=== PATIENT | female | born 1940 | race Caucasian/White ===

== ENCOUNTER 2017-03-04 08:09 | Inpatient (IN) | payer MEDICARE ==
[2017-03-04] VITALS (10 sets, daily range): BP systolic 113–139; BP diastolic 53–70; BMI 23.1
[~2017-03-04 08:09] MED LIST: ADVAIR 100/501 DISK INH; CALCIUM CITRATE1 TAB PO; DUONEB 2.5-0.5 M3 ML INH; ESTRACE1 MG PO; EZFE 200200 MG PO; FERROUS SULFAT325 MG PO; LIPITOR20 MG PO; LORTAB 5/500 TA1 TA2 PO; MULTI-DAY VITAM1 TAB PO; NORCO 10/325 TA1 TA1 PO; PRILOSEC20 MG PO; RESTORIL15 MG PO; SLOW-MAG 64 MG64 MG PO; SYNTHROID50 MCG PO; VITAMIN D50000 UNIT PO
[2017-03-04 08:29] LABS: BASOPHILS 0.2 % (0-2); EOSINOPHILS 1.6 % (0-7); HEMATOCRIT 30.3 % (36.0-48.0); HEMOGLOBIN 10.1 g/dL (12-16); IMMATURE GRANULOCYTES 0.6 % (0-5); LYMPHOCYTES 30.1 % (15-50); MCH 31.3 pg (26.0-34.0); MCHC 33.3 g/dL (31.0-37.0); MCV 93.8 fL (80.0-100.0); MEAN PLATELET VOLUME 9.6 fL (7.4-10.4); MONOCYTES 7.4 % (2-11); NEUTROPHILS 60.1 % (40-80); RBC 3.23 10x6/uL (4.00-5.40); RDW 12.6 % (11.5-14.5); WBC 12.4 10x3/uL (4.8-10.8)
[2017-03-04 08:30] LABS: PLATELET COUNT 287 10x3/uL (130-400)
[2017-03-04 08:50] LABS: ALBUMIN 2.8 g/dL (3.4-5.0); ANION GAP 15.9 mmol/L (8-16); BILIRUBIN - TOTAL 0.32 mg/dL (0.2-1.3); CALCIUM 8.8 mg/dL (8.5-10.1); CARBON DIOXIDE 19.9 mmol/L (21.0-32.0); CREATININE - SERUM 1.8 mg/dL (0.6-1.3); POTASSIUM - SERUM 3.8 mmol/L (3.5-5.1); PROTEIN - SERUM 6.4 g/dL (6.4-8.2)
[2017-03-04 09:06] LABS: INR 0.94 (0.85-1.17); PROTIME 12.5 SECONDS (11.6-15.0)
[2017-03-04 09:54] LABS: APPEARANCE CLOUDY (CLEAR); BACTERIA MANY /hpf (NONE SEEN); BILIRUBIN NEGATIVE (NEGATIVE); COLOR YELLOW (YELLOW); EPITHELIAL CELLS 0-5 /hpf (0-5); GLUCOSE NEGATIVE (NEGATIVE); KETONE NEGATIVE (NEGATIVE); MUCUS <1+ /lpf (NONE SEEN); NITRITE POSITIVE (NEGATIVE); PROTEIN 1+ mg/dL (NEGATIVE); UROBILINOGEN NORMAL (NORMAL); WHITE CELLS - URINE >50 /hpf (0-5)
[2017-03-04] MEDS ORDERED: BONIVA3 MG/3 ML/ IV (11:27)
--- NOTE | 2017-03-04 11:45 | NUR ---
PT AOX4 RESP EVEN AND NONLABORED PT DENIES NEEDS AT THIS TIME IV TO RIGHT HAND PATENT AND INTACT AT THIS TIME SRX2 BED AT LOWEST SETTING CALL LIGHT WITHIN REACH WILL CONTINUE TO MONITOR
--- NOTE | 2017-03-04 20:00 | NUR ---
PT RESTING IN BED AND HAS NO VISIBLE SIGNS OF DISTRESS. PATIENT STATES HER PAIN IS 2/10 AND SHE IS "OKAY AT THE MOMENT." BROUGHT PATIENT A DRINK PER HER REQUEST. PATIENT DENIES OTHER NEEDS AT THIS TIME. BED IN LOWEST POSITION AND CALL LIGHT WITHIN REACH. ENCOURAGED THE PATIENT TO CALL IF SHE HAS NEEDS.
[2017-03-05] VITALS (7 sets, daily range): BP systolic 111–122; BP diastolic 36–62; BMI 23.0
[2017-03-05 05:01] LABS: BASOPHILS 0.1 % (0-2); EOSINOPHILS 0 % (0-7); HEMATOCRIT 31.4 % (36.0-48.0); HEMOGLOBIN 9.8 g/dL (12-16); IMMATURE GRANULOCYTES 0.3 % (0-5); LYMPHOCYTES 11.3 % (15-50); MCH 30.9 pg (26.0-34.0); MCHC 31.2 g/dL (31.0-37.0); MCV 99.1 fL (80.0-100.0); MEAN PLATELET VOLUME 9.8 fL (7.4-10.4); MONOCYTES 10.5 % (2-11); NEUTROPHILS 77.8 % (40-80); PLATELET COUNT 254 10x3/uL (130-400); RBC 3.17 10x6/uL (4.00-5.40); RDW 13.2 % (11.5-14.5); WBC 16.7 10x3/uL (4.8-10.8)
[2017-03-05 05:09] LABS: ALBUMIN 2.7 g/dL (3.4-5.0); ANION GAP 16.6 mmol/L (8-16); BILIRUBIN - TOTAL 0.28 mg/dL (0.2-1.3); CALCIUM 8.1 mg/dL (8.5-10.1); CARBON DIOXIDE 18.5 mmol/L (21.0-32.0); CREATININE - SERUM 1.6 mg/dL (0.6-1.3); POTASSIUM - SERUM 4.1 mmol/L (3.5-5.1); PROTEIN - SERUM 6.5 g/dL (6.4-8.2)
--- NOTE | 2017-03-05 10:33 | NUR ---
PT AWAKE AND ALERT. RATED PAIN 10/10. NORCO 10 GIVEN. AM MEDS GIVEN WITH NO COMPLICATIONS. NO OTHER NEEDS AT THIS TIME. WILL CONTINUE TO MONITOR.
--- NOTE | 2017-03-05 13:40 | NUR ---
Patient Name: DOMENICO MEJIA Admission Status: ER Accout number: [id number] Admission Date: 03-04-2017 : 1940 Admission Diagnosis: Attending: MIRANDA CARR Current LOS: 1 Anticipated DC Date: 03-07-2017 Planned Disposition: Assisted Facility Primary Insurance: [facility] Discharge Planning Comments: CM MET WITH PATIENT REGARDING D/C NEEDS AND PLANS. PATIENT STATED SHE LIVES WITH HER SON (SHEILA) AND HE WILL DRIVE HER IF GOES HOME. PATIENT IS INDEPENDENT WITH HER CARE AND HAS A NEBULIZER AND OXYGEN AT HOME. PATIENT STATES THERE ARE 3 STEPS TO ENTER HOME AND NO STAIRS INSIDE. PATIENTS PCP IS DR. CONNER AND PHARMACY IS [facility]. PATIENT SIGNED THE MADELINE WITH [facility] OR [facility]. PATIENT KNOWS A SNF IS WHERE SHE NEEDS TO GO AND IS WILLING TO GO TO [place]. CM WILL CONTINUE TO FOLLOW PATIENT WITH D/C NEEDS AND PLANS. PCP DR. UBALDO GROSS ON [address] [phone] SHEILA (SON) [phone] Driver Lifter Of Sanitation Truck: Layla Levin Is the patient Alert and Oriented? Yes 0 * How many steps to enter\exit or inside your home? 3 0 * PCP DR. CONNER 0 * Pharmacy [facility] [address] 0 * Preadmission Environment Home with Family 0 * ADLs Independent 0 * Equipment Nebulizer Oxygen 0 * List name and contact numbers for known caregivers / representatives who currently or will assist patient after discharge: SHEILA SHARMA (SON) [phone] * Community resources currently utilized None 0 * Additional services required to return to the preadmission environment? Yes 0 * Can the patient safely return to the preadmission environment? Yes 0 * Has this patient been hospitalized within the prior 30 days at any hospital? No 0 Grand Total: 0
--- NOTE | 2017-03-05 13:46 | NUR ---
CM REASSESSMENT NOTE: REFERRAL SENT TO [facility] FOR SNF PLACEMENT
--- NOTE | 2017-03-05 16:58 | NUR ---
OT NOTE: PT COMPLETED BUE STRENGTHENING EXS FOR INCREASED I WITH TRANSFERS. THANK YOU, DEYA BOURGEOIS/Ashlee
--- NOTE | 2017-03-05 20:00 | NUR ---
PATIENT RESTING IN BED AND DENIES NEEDS AT THIS TIME. BED IN LOWEST POSITION, CALL LIGHT WITHIN REACH, AND BED ALARM ON. ENCOURAGED THE PATIENT TO CALL IF SHE HAS NEEDS.
[2017-03-06 04:00] VITALS: BP 122/44
[2017-03-06 06:11] LABS: ALBUMIN 2.2 g/dL (3.4-5.0); ANION GAP 15.6 mmol/L (8-16); BILIRUBIN - TOTAL 0.41 mg/dL (0.2-1.3); CALCIUM 7.6 mg/dL (8.5-10.1); CARBON DIOXIDE 18.9 mmol/L (21.0-32.0); CREATININE - SERUM 1.6 mg/dL (0.6-1.3); POTASSIUM - SERUM 4.5 mmol/L (3.5-5.1); PROTEIN - SERUM 5.9 g/dL (6.4-8.2)
[2017-03-06 06:43] LABS: BASOPHILS 0.1 % (0-2); EOSINOPHILS 0.2 % (0-7); HEMATOCRIT 25.3 % (36.0-48.0); HEMOGLOBIN 8.4 g/dL (12-16); IMMATURE GRANULOCYTES 0.5 % (0-5); LYMPHOCYTES 11.1 % (15-50); MCH 31.7 pg (26.0-34.0); MCHC 33.2 g/dL (31.0-37.0); MEAN PLATELET VOLUME 10.2 fL (7.4-10.4); MONOCYTES 12.2 % (2-11); NEUTROPHILS 75.9 % (40-80); PLATELET COUNT 234 10x3/uL (130-400); RBC 2.65 10x6/uL (4.00-5.40); WBC 15.4 10x3/uL (4.8-10.8)
[2017-03-06 06:47] LABS: MCV 95.5 fL (80.0-100.0)
--- NOTE | 2017-03-06 07:30 | NUR ---
ASSESSMENT PER FLOW SHEET.PT WITHOUT DISTRESS.DENIES NEEDS.CALL LIGHT IN REACH.WING MAT ON AND WORKING ,FALL PREVENTION IN PLACE
[2017-03-06 08:54] VITALS: BP 121/53
--- NOTE | 2017-03-06 10:37 | NUR ---
OT NOTE: PERFORMED BED MOB WITH MOD ASSIST; ABLE TO AMB WITHIN ROOM WITH rw AND MIN ASSIST; STATIC SITTING ON EDGE OF BED WITH SPV; UNABLE TO MARCY SOCKS AST THIS TIME. FEEDING AND GROOMING WITH SET UP
--- NOTE | 2017-03-06 12:03 | NUR ---
UNIT 1 OF 1 BR'S INITIATED.PT WITHOUT REACTIONS AT PRESENT.
--- NOTE | 2017-03-06 14:15 | NUR ---
UNIT 1 OF 1 PRBC'S COMPLETE.PT WITHOUT REACTIONS.CALL LIGHT IN REACH
--- NOTE | 2017-03-06 16:14 | NUR ---
Rehab Prescreening Consult recieved and the chart was reviewed. She is a [facility] Managed M[employer] and will require a preauthorization for rehab. The preauth was initiated today. Will wait for a determination from [facility]. Nazia Wade RN Clinical Liaison, Rehab
--- NOTE | 2017-03-06 17:39 | NUR ---
OT NOTE: PT COMPLETED SIMPLE HYGIENE TASK WITH SET UP. PT COMPLETED BUE AROM EXS FOR INCREASED AX TOLERANCE. THANK YOU, DEYA BOURGEOIS/Ashlee
--- NOTE | 2017-03-06 18:12 | NUR ---
REMAINS WITHOOUT NEEDS,WITHOUT DISTRESS,CONT PLAN OF CARE
--- NOTE | 2017-03-06 18:56 | OP ---
PATIENT NAME: DOMENICO MEJIA I MEDICAL RECORD: [id number] :40 LOCATION:D.[id number] ADMISSION DATE:03/04/17 SURGEON: TIAN VELÁSQUEZ MD DATE OF OPERATION: 03/04/2017 Orthopedic Surgery Operative Note PREOPERATIVE DIAGNOSIS: Comminuted intertrochanteric fracture of the right hip. POSTOPERATIVE DIAGNOSIS: Comminuted intertrochanteric fracture of the right hip. PROCEDURE: Gamma nail intracephalomedullary fixation of intertrochanteric fracture of the right hip. SURGEON: Tian Velásquez MD. ANESTHESIA: General. INTRAOPERATIVE COMPLICATIONS: None. SUMMARY OF PATHOLOGIC FINDINGS: Consistent with the preoperative radiographs. The patient had a comminuted proximal intertrochanteric hip fracture. OPERATIVE SUMMARY IN DETAIL: After obtaining the appropriate preoperative orthopedic surgery consent as well as anesthetic consultation, evaluation and clearance, the patient was brought to the operating room and placed on the operating table in supine position. After general laryngeal mask was administered, the patient was placed on the Chick table. Right leg was placed in the traction boot. Left leg was placed in the well leg cortez. She was held firmly to the operating table using the belt strap system. Hip was reduced using traction under direct fluoroscopic evaluation, both AP and lateral planes. Hip was prepped and draped in routine sterile fashion. Incision was made over the tip of the greater trochanter. Intramedullary guidewire was sent down the femur using awl. Proximal reaming was followed by insertion of the gamma nail. The guide pin was placed in the center-center position of the femoral head. At this point, the compression screw was applied after reaming and compression was applied across the fracture. This resulted in excellent reduction of the fracture itself. The rotational screw was put into the appropriate depth and distal interlocking was done using the distal interlocking guide. Fluoroscopy was used to take radiographs final submitted for radiologist review. The wound was irrigated and closed in usual fashion. Sterile dressings were applied. The patient was awakened, taken to recovery in stable condition. All final needle and sponge counts were correct. TRANSINT:[id number] Voice Confirmation ID: [id number] DOCUMENT ID: [id number] OPERATIVE REPORT [id number] DOMENICO MEJIA I TIAN VELÁSQUEZ MD at 0912 CC: [id number] DICTATION DATE: 03/04/171900 FICTION WRITER: 03/04/172243 ADM IN [facility] [address] [id number]
[2017-03-06 20:00] VITALS: BP 124/43
--- NOTE | 2017-03-07 01:00 | NUR ---
PT CONFUSED STATES SHE IS AT [facility], ATEMPTED MULTIPLE TIMES TO REORIENT HER IN ORDER TO CALM HER DOWN. GARCÍA CATHETER WAS FOUND ON FLOOR BULB INTACT. PT CONTINUED TO TRY TO CLIMB OOB, SRX3 WING ALARM ON AND NON-SKID SOCKS IN USE. WARM BLANKET PROVIDED. WILL CONTINUE TO MONITOR.
--- NOTE | 2017-03-07 03:00 | NUR ---
PT ATEMPTING TO GET OUT BED STATING THAT SHE NEEDED TO GO HOME. CONFUSED TO PLACE AND SITUATION STATED "I'M AT THE DRS OFFICE AT [facility]" DOES NOT RECALL HAVING HIP SURGERY TWO DAYS AGO STATED "MY SURGERY WAS A MONTH AGO, I SHOULD NOT BE HERE." ASKED PT IF I COULD RESTART AN IV SHE STATED "NO, I DO NOT NEED IT." WOULD NOT ALLOW US TO REINSERT GARCÍA CATHETER STATING "I CAN PEE ON MY OWN." PT CALMED DOWN AFTER 10 MINS STATED THAT SHE WOULD NOT GET OUT OF BED AGAIN. CALL LIGHT IN REACH, INSTRUCTED PT TO USE CALL LIGHT FOR ANY NEEDS, PT VERBALIZED UNDERSTANDING. BED IN LOW POSITION, WING ALARM ON. WILL CONTINUE TO MONITOR.
[2017-03-07 04:00] VITALS: BP 129/66
[2017-03-07 05:57] LABS: BASOPHILS 0.1 % (0-2); EOSINOPHILS 0.2 % (0-7); HEMATOCRIT 30.1 % (36.0-48.0); IMMATURE GRANULOCYTES 0.5 % (0-5); LYMPHOCYTES 7.5 % (15-50); MCH 31.3 pg (26.0-34.0); MCHC 33.9 g/dL (31.0-37.0); MEAN PLATELET VOLUME 10.2 fL (7.4-10.4); MONOCYTES 10.5 % (2-11); NEUTROPHILS 81.2 % (40-80); PLATELET COUNT 238 10x3/uL (130-400); RDW 14.1 % (11.5-14.5); WBC 19.2 10x3/uL (4.8-10.8)
[2017-03-07 06:05] LABS: HEMOGLOBIN 10.2 g/dL (12-16); MCV 92.3 fL (80.0-100.0); RBC 3.26 10x6/uL (4.00-5.40)
[2017-03-07 06:15] LABS: ALBUMIN 2.4 g/dL (3.4-5.0); ANION GAP 18.8 mmol/L (8-16); BILIRUBIN - TOTAL 0.66 mg/dL (0.2-1.3); CALCIUM 7.9 mg/dL (8.5-10.1); CARBON DIOXIDE 18.1 mmol/L (21.0-32.0); CREATININE - SERUM 1.4 mg/dL (0.6-1.3); POTASSIUM - SERUM 3.9 mmol/L (3.5-5.1); PROTEIN - SERUM 5.8 g/dL (6.4-8.2)
--- NOTE | 2017-03-07 07:45 | NUR ---
ASSESSMENT COMPLETE. NO IV ACCESS. DRESSING TO R HIP C/D/I. FREQUENTLY TRYING TO CLIMB OUT OF BED. BED ALARM AND WING MAT IN USE. ORIENTED TO SELF ONLY.
[2017-03-07 08:32] VITALS: BP 139/67; BP 170/93
--- NOTE | 2017-03-07 08:51 | NUR ---
AM MEDICATIONS GIVEN WITHOUT DIFFICULTY.
[2017-03-07 12:03] VITALS: BP 126/60
--- NOTE | 2017-03-07 12:05 | NUR ---
SITTING ON SIDE OF BED ROCKING SIDE TO SIDE. REFUSING TO LAY DOWN IN BED. STATES SHE IS AT HOME AND NEEDS TO FEED HER CATS. JOSÉ MIGUEL MONCADA APN ON FLOOR NOTIFIED. ORDER RECIEVED FOR HALDOL IM. HALDOL GIVEN TO R COLLINS.
--- NOTE | 2017-03-07 14:29 | NUR ---
OT NOTE: PT VERY CONFUSED TODAY. HAS NO RECALL OF RECENT HIP SURGERY..DOES NOT BELIEVE SHE IS IN HOSPITAL. PT CONTINUALLY ATTEMPTING TO GET OUT OF BED; ATTEMPTED TO REDIRECT PT WITH UE EXS SHE WAS BECOMING SLIGHTLY AGITATED. PT ABLE TO FOLLOW EXS WITH DEMONSTRATIONAL CUES BUT NOT VERBAL CUES. ATTEMPTED TO GO OVER SAFETY AWARNESS ISSUES, BUT PT UNABLE TO REMEMBER EVEN AFTER 3 TIMES EXPLAINING.
--- NOTE | 2017-03-07 15:06 | NUR ---
NUTRITION F/U CHART REVIEWED. PT IN ISOLATION. TOLERATING REG DIET. 25 TO 50% INTAKE RECENT MEALS. WILL CONTINUE TO PROVIDE DIET. PT DECLINES ENSURE. RD FOLLOWING
[2017-03-07 16:00] VITALS: BP 130/68
--- NOTE | 2017-03-07 16:00 | NUR ---
RESTING QUIETLY WITH EYES CLOSED. BLADDER SCAN PERFORMED. RESULTED 230 CC'S. IV SITED TO L FA WITH 22 GAUGE X 1 ATTEMPT BY KEE HANSON RN.
--- NOTE | 2017-03-07 16:41 | NUR ---
NS BOLUS STARTED.
--- NOTE | 2017-03-07 18:31 | NUR ---
RESTING QUIETLY WITH EYES CLOSED. FAMILY X 2 AT BEDSIDE.
[2017-03-07 20:00] VITALS: BP 133/67
--- NOTE | 2017-03-07 20:45 | NUR ---
PT RESTING WITH EYES CLOSED, RESPIRATIONS EVEN AND UNLABORED. NO DISTRESS NOTED. IV LEFT FOREARM PATENT 1/2 NS @30. FALL PRECAUTIONS IN PLACE. PT REFUSES SCD'S AT THIS TIME. WILL CONTINUE TO MONITOR.
--- NOTE | 2017-03-07 22:00 | NUR ---
BED CHANGE COMPLETED AT THIS TIME DUE TO PT INCONTINENT OF URINE UNABLE TO MEASURE AMOUNT. SCD'S ON. FALL PRECAUTIONS IN PROGRESS. WILL CONTINUE TO MONITOR.
--- NOTE | 2017-03-07 23:22 | NUR ---
PRN ATIVAN 1MG IM ADMINISTERED IN LEFT DELTOID AT THIS TIME FOR AGITATION, PT ATEMPTING TO CRAWL OOB STATING "I'M GOING HOME". FALL PRECAUTIONS IN PROGRESS. WILL CONTINUE TO MONITOR.
[2017-03-08 01:23] VITALS: BP 131/71
--- NOTE | 2017-03-08 05:00 | NUR ---
PT ATEMPTING TO GET OOB WANTING TO GO HOME. BED AND WING ALARM ON, SRX3. WILL CONTINUE TO MONITOR.
[2017-03-08 05:44] LABS: BASOPHILS 0.1 % (0-2); EOSINOPHILS 0.9 % (0-7); HEMATOCRIT 25.9 % (36.0-48.0); HEMOGLOBIN 8.8 g/dL (12-16); IMMATURE GRANULOCYTES 0.4 % (0-5); LYMPHOCYTES 9.3 % (15-50); MCH 31.4 pg (26.0-34.0); MCV 92.5 fL (80.0-100.0); MEAN PLATELET VOLUME 9.9 fL (7.4-10.4); MONOCYTES 9.9 % (2-11); NEUTROPHILS 79.4 % (40-80); PLATELET COUNT 217 10x3/uL (130-400); RDW 13.6 % (11.5-14.5)
[2017-03-08 06:16] LABS: WBC 12.8 10x3/uL (4.8-10.8)
[2017-03-08 06:25] LABS: ALBUMIN 1.9 g/dL (3.4-5.0); ANION GAP 12.3 mmol/L (8-16); BILIRUBIN - TOTAL 0.5 mg/dL (0.2-1.3); CALCIUM 7.5 mg/dL (8.5-10.1); CARBON DIOXIDE 20.1 mmol/L (21.0-32.0); CREATININE - SERUM 1.4 mg/dL (0.6-1.3); POTASSIUM - SERUM 3.4 mmol/L (3.5-5.1); PROTEIN - SERUM 5.2 g/dL (6.4-8.2)
[2017-03-08 06:42] VITALS: BP 144/62
--- NOTE | 2017-03-08 07:45 | NUR ---
ASSESSMENT COMPLETE. IV TO L FA PATENT. NS INFUSING AT 30 CC/HR VIA PUMP. DRESSING INTACT TO R HIP. ORIENTED TO SELF ONLY. WING MAT AND BED ALARM IN USE. SCD'S IN USE.
[2017-03-08 08:31] VITALS: BP 137/68
[2017-03-08] MEDS ORDERED: ELIQUIS2.5 MG PO (11:07)
[2017-03-08] MEDS ORDERED: FLORAJEN3 CAPS460 MG PO (11:08)
[2017-03-08] MEDS ORDERED: SENOKOT-S TABLE1 TAB PO (11:08)
[2017-03-08] MEDS ORDERED: DOXYCYCLINE HY100 M2 PO (11:09)
--- NOTE | 2017-03-08 11:12 | NUR ---
CM REASSESSMENT NOTE: PATIENT IS DISCHARGING TO THE [facility] TODAY BY FACILITY VAN TO A SKILLED BED.
[2017-03-08] MEDS ORDERED: HYDROCODONE-APA1 TAB PO (13:31)
--- NOTE | 2017-03-08 13:55 | NUR ---
IV REMOVED. CATHETER TIP INTACT. DRESSING TO R HIP CHANGED. KATHERINE INTACT TO INCISIONS X 3 TO R HIP.
--- NOTE | 2017-03-08 14:12 | NUR ---
REPORT CALLED TO TRISH AT THE [facility]. WILL DC WHEN RIDE FROM FACILITY AVAILABLE.
--- NOTE | 2017-03-08 14:14 | NUR ---
CM REASSESSMENT NOTE: PATIENTS FAMILY (SHEILA-SON) HAS BEEN NOTIFIED OF PATIENT DISCHARGING TO THE [facility] TODAY.
--- NOTE | 2017-03-08 15:39 | NUR ---
DC'D TO THE Exent WITH TRACK COACH VIA WC WITH BELONGINGS.
--- NOTE | 2017-03-25 15:54 | DS ---
PATIENT:DOMENICO MEJIA I :40 MEDICAL RECORD: [id number] DISCHARGE SUMMARY ADMISSION DATE: 03/04/17 DISCHARGE DATE: 03/08/17 DATE OF ADMISION: 03/04/2017 DATE OF DISCHARGE: 03/08/2017 DIAGNOSES: 1. Status post fall. 2. Comminuted intertrochanteric fracture of the right hip. 3. Urinary tract infection. 4. Chronic obstructive pulmonary disease, oxygen dependent. CONSULT: Dr. Varma for hip fracture. IMAGES OR PROCEDURES: 1. Gamma nail fixation of the right hip. 2. Two-view hip film, which showed a right hip fracture. 3. Chest x-ray, which showed no acute pathology. HOSPITAL COURSE: The full H&P is listed elsewhere in the chart for this 77-year-old female patient, who is oxygen dependent at home, who tripped over her oxygen tank and was brought in for evaluation. She had a noted right hip fracture. She was placed on the med/surg floor and ortho consult was obtained. The patient underwent operative procedure to repair her right hip. She was placed on the ortho clinical pathway where her pain was controlled and she had DVT prophylaxis with Eliquis. She had a noted urinary tract infection and the culture was positive for Staph aureus, so she was treated with IV Rocephin. Her clinical condition improved. Her antibiotic therapy was deescalated. She did well on the ortho pathway. She was thought to be stable to transfer to the [facility] to continue her hip rehabilitation. See med rec. TRANSINT:[id number] Voice Confirmation ID: [id number] DOCUMENT ID: [id number] Dictated By: MELE SAENZ I have interviewed/examined the above patient and agree with these documented findings. MIRANDA CARR MD at 1110 at 1553 CC: [id number] DICTATION DATE: 03/20/17 1625 SCARFER OPERATOR: 03/21/17 1052 DIS IN 03/08/17 [address] [place] [address]
[2017-07-02] MEDS ORDERED: FISH OIL 1,2001 CAP PO (15:19)
[2017-07-02] MEDS ORDERED: CALTRATE 600 M600 M1 PO (15:19)
[2017-07-02] MEDS ORDERED: MAG-OXIDE400 MG PO (15:19)
[2017-07-02] MEDS ORDERED: VITAMIN B-121000 MCG PO (15:19)
[2017-07-02] MEDS ORDERED: VITAMIN K2 PO (15:20)
[2017-07-02] MEDS ORDERED: VITAMIN D31000 UNIT PO (15:20)
== END 2017-03-08 15:41 | DRG 481 ==
LOC: D.ER 08:09 → D.MS 10:41
PROVIDERS: Emergency Medicine; Orthopaedic Surgery; ADMIT Family Medicine
PROC: 0QH636Z Insertion of Intramedullary Internal Fixation Device into Right Upper Femur, Percutaneous Approach (ICD-10-PCS; principal; 2017-03-04 13:45)
DX: S72.141A Displaced intertrochanteric fracture of right femur, initial encounter for closed fracture (principal); N39.0 Urinary tract infection, site not specified; D62 Acute posthemorrhagic anemia; N17.9 Acute kidney failure, unspecified; W01.0XXA Fall on same level from slipping, tripping and stumbling without subsequent striking against object, initial encounter; J44.9 Chronic obstructive pulmonary disease, unspecified; M19.90 Unspecified osteoarthritis, unspecified site; R41.0 Disorientation, unspecified; M81.0 Age-related osteoporosis without current pathological fracture; Z99.81 Dependence on supplemental oxygen; E86.0 Dehydration; E03.9 Hypothyroidism, unspecified; K21.9 Gastro-esophageal reflux disease without esophagitis; B95.61 Methicillin susceptible Staphylococcus aureus infection as the cause of diseases classified elsewhere; Z87.891 Personal history of nicotine dependence

== ENCOUNTER → 2017-06-19 07:33 | Outpatient (CLI) | payer MEDICARE ==
[2017-03-05 14:43] VITALS: BMI 23.0
[~2017-06-19 07:33] MED LIST changes: +BONIVA3 MG/3 ML/ IV; +CALTRATE 600 M600 M1 PO; +DOXYCYCLINE HY100 M2 PO; +ELIQUIS2.5 MG PO; +FISH OIL 1,2001 CAP PO; +FLORAJEN3 CAPS460 MG PO; +HYDROCODONE-APA1 TAB PO; +MAG-OXIDE400 MG PO; +SENOKOT-S TABLE1 TAB PO; +VITAMIN B-121000 MCG PO; +VITAMIN D31000 UNIT PO; +VITAMIN K2 PO
== END | disposition home or self-care (01) ==
LOC: D.NM 07:33
DX: M79.604 Pain in right leg (principal)

== ENCOUNTER → 2017-06-26 15:35 | Outpatient (CLI) | payer MEDICARE ==
[2017-03-05 14:43] VITALS: BMI 23.0
== END ==
LOC: D.ER 15:35 → D.LABREF 18:01 → D.ER 18:01
DX: M25.561 Pain in right knee (principal); Z11.8 Encounter for screening for other infectious and parasitic diseases

== ENCOUNTER 2017-06-26 18:33 | Emergency (ER) | payer MEDICARE ==
[2017-03-05 14:43] VITALS: BMI 23.0
[~2017-06-26 18:33] MED LIST changes: -CALTRATE 600 M600 M1 PO; -FISH OIL 1,2001 CAP PO; -MAG-OXIDE400 MG PO; -VITAMIN B-121000 MCG PO; -VITAMIN D31000 UNIT PO; -VITAMIN K2 PO
[2017-07-02] MEDS ORDERED: VITAMIN B-121000 MCG PO (15:19)
[2017-07-02] MEDS ORDERED: CALTRATE 600 M600 M1 PO (15:19)
[2017-07-02] MEDS ORDERED: MAG-OXIDE400 MG PO (15:19)
[2017-07-02] MEDS ORDERED: FISH OIL 1,2001 CAP PO (15:19)
[2017-07-02] MEDS ORDERED: VITAMIN K2 PO (15:20)
[2017-07-02] MEDS ORDERED: VITAMIN D31000 UNIT PO (15:20)
== END 2017-06-26 18:40 | disposition home or self-care (01) ==
LOC: D.ER 18:33
DX: Z02.9 Encounter for administrative examinations, unspecified (principal)

== ENCOUNTER 2017-07-03 10:00 | Inpatient (IN) | payer MEDICARE ==
[~2017-07-03] VITALS: Ht 157.5 cm; Wt 55.9 kg
--- NOTE | ~2017-07-03 | OP ---
PATIENT NAME: DOMENICO MEJIA I MEDICAL RECORD: [id number] :40 LOCATION:D.MS [facility]18 ADMISSION DATE:07/08/17 SURGEON: TIAN VELÁSQUEZ MD DATE OF OPERATION: 07/08/2017 PREOPERATIVE DIAGNOSIS: Painful right total knee. POSTOPERATIVE DIAGNOSIS: Painful right total knee. PROCEDURE: Revision of total knee arthroplasty. SURGEON: Tian Velásquez MD ANESTHESIA: General. INTRAOPERATIVE COMPLICATIONS: None. SUMMARY OF PATHOLOGIC FINDINGS: The patient had loosened at the tibial baseplate around the Palacos cement. Other than that, she had excellent distal femoral fixation. IMPLANT REMOVED: Biomet total knee arthroplasty. IMPLANT PLACED: Triathlon total stabilizing revision arthroplasty. IMPLANTS USED: Size 4 distal femoral component. Size 4 distal augmentation medially and laterally. Size 12 x 100 cemented implant. A tibial baseplate size 4 with a 4 offset adapter. Please note that there was a femoral posterior augment 5 mm as well laterally and the stem on the tibia was 12 mm x 50 mm. This was a cemented implant as this elder patient with osteoporosis I did not feel would be pain free with press-fit stemmed implants. OPERATIVE SUMMARY IN DETAIL: After obtaining the appropriate preoperative orthopedic surgery consent as well as anesthetic consultation, evaluation, and clearance, the patient was brought to the operating room and placed on the operating table in supine position. After general laryngeal mask was administered, tourniquet was placed about the proximal aspect of the right lower extremity. Right lower extremity was then prepped and draped in routine sterile fashion. Leg was elevated, exsanguinated and tourniquet was inflated to 350 mmHg. Routine midline incision was made in keeping with the previous incision taking down for a paramedian arthrotomy. Paramedian arthrotomy was performed. Patella was everted. Distal femur was exposed. The distal femur was quite difficult to remove; however, combination of the Bautista revision set and the small flexible osteotomes as well as use of the Gigli saw made removal of the distal femur reasonable without excessive bone loss. Having completed this, attention was turned to the tibia. The tibia was removed quite easily and it was loose between the Palacos cement and the baseplate. Palacos cement was removed. Serial and sequential reaming was done of the tibia for a cemented implant. Cleanup cut was made and then reaming was done again to the distal femur. Cleanup cut was made. Box cut was made for the total stabilizing revision. Trials were put into place corresponding to the above implants, taken through range of motion and found to be stable in all planes. Having completed this, copious pulsatile lavage irrigation was run through the knee cavity while the final components were being assembled on the back table. Cement restrictors were placed in both the femur and the tibia. Bone ends were dried and then the OPERATIVE REPORT [id number] DOMENICO MEJIA I canals were filled with cement and the bone ends were covered with the cement. Both the tibia and femoral components were cemented into place. All excess cement was removed. After the cement was allowed to harden, knee was taken through range of motion and found to be stable in all planes. Paramedian arthrotomy was closed with #2 Ethibond, followed by #1 Vicryl, 2-0 Vicryl, and skin jaime. Sterile dressings were applied. The patient was awakened, taken to recovery in stable condition. All final needle and sponge counts were correct. TRANSINT:[id number] Voice Confirmation ID: [id number] DOCUMENT ID: [id number] CHRISTEN GUZMAN, TIAN AHUMADA at 1133 CC: [id number] DICTATION DATE: 07/11/172049 PRECISION ASSEMBLER: 07/12/17 0723 DIS IN 07/11/[address] [place] [address]
[~2017-07-03 10:00] MED LIST changes: +CALTRATE 600 M600 M1 PO; +FISH OIL 1,2001 CAP PO; +MAG-OXIDE400 MG PO; +VITAMIN B-121000 MCG PO; +VITAMIN D31000 UNIT PO; +VITAMIN K2 PO
[2017-07-03 10:38] LABS: BASOPHILS 0.3 % (0-2); EOSINOPHILS 2.7 % (0-7); HEMATOCRIT 31.2 % (36.0-48.0); HEMOGLOBIN 9.8 g/dL (12-16); IMMATURE GRANULOCYTES 0.2 % (0-5); LYMPHOCYTES 27.2 % (15-50); MCH 30.5 pg (26.0-34.0); MCHC 31.4 g/dL (31.0-37.0); MCV 97.2 fL (80.0-100.0); MEAN PLATELET VOLUME 10.1 fL (7.4-10.4); MONOCYTES 9.8 % (2-11); NEUTROPHILS 59.8 % (40-80); PLATELET COUNT 254 10x3/uL (130-400); RBC 3.21 10x6/uL (4.00-5.40); RDW 14.9 % (11.5-14.5); WBC 8.8 10x3/uL (4.8-10.8)
[2017-07-03 10:54] LABS: ANION GAP 12.4 mmol/L (8-16); CARBON DIOXIDE 27.7 mmol/L (21.0-32.0); CREATININE - SERUM 1.8 mg/dL (0.6-1.3); POTASSIUM - SERUM 5.1 mmol/L (3.5-5.1)
[2017-07-03 11:02] LABS: APTT 27.6 SECONDS (22.8-39.4); INR 0.98 (0.85-1.17); PROTIME 12.6 SECONDS (11.6-15.0)
[2017-07-03 11:03] LABS: COLOR YELLOW (YELLOW)
[2017-07-03 11:04] LABS: APPEARANCE CLOUDY (CLEAR); BILIRUBIN NEGATIVE (NEGATIVE); GLUCOSE NEGATIVE (NEGATIVE); KETONE NEGATIVE (NEGATIVE); NITRITE NEGATIVE (NEGATIVE); PROTEIN TRACE mg/dL (NEGATIVE); SPECIFIC GRAVITY 1.005 (1.005-1.020); UROBILINOGEN NORMAL (NORMAL)
[2017-07-03 11:06] LABS: WHITE CELLS - URINE >50 /hpf (0-5)
[2017-07-03 11:07] LABS: BACTERIA MANY /hpf (NONE SEEN); EPITHELIAL CELLS 0-5 /hpf (0-5)
[2017-07-08 07:50] VITALS: BP 128/55; BMI 23.4
[2017-07-08 17:53] VITALS: BP 144/66
[2017-07-09] VITALS: BP 114/49
[2017-07-09 04:00] VITALS: BP 104/43
[2017-07-09 05:54] LABS: HEMATOCRIT 30.3 % (36.0-48.0); HEMOGLOBIN 9.4 g/dL (12-16); MCH 30.5 pg (26.0-34.0); MCV 98.4 fL (80.0-100.0); MEAN PLATELET VOLUME 10.6 fL (7.4-10.4); RBC 3.08 10x6/uL (4.00-5.40); RDW 14.4 % (11.5-14.5); WBC 12.7 10x3/uL (4.8-10.8)
[2017-07-09 09:02] VITALS: BP 108/50
[2017-07-09 11:24] VITALS: Ht 157.5 cm; Wt 55.9 kg
[2017-07-09 12:45] VITALS: BP 106/45
[2017-07-09 17:19] VITALS: BP 112/47
[2017-07-10] VITALS: BP 107/40
[2017-07-10 04:00] VITALS: BP 107/40
[2017-07-10 05:28] LABS: HEMATOCRIT 24.3 % (36.0-48.0); HEMOGLOBIN 7.6 g/dL (12-16); MCH 30.4 pg (26.0-34.0); MCHC 31.3 g/dL (31.0-37.0); MCV 97.2 fL (80.0-100.0); MEAN PLATELET VOLUME 10.4 fL (7.4-10.4); RBC 2.5 10x6/uL (4.00-5.40); RDW 14.7 % (11.5-14.5)
[2017-07-10 08:01] VITALS: BP 117/36
[2017-07-10 12:20] VITALS: BP 103/44
[2017-07-10 17:02] VITALS: BP 149/60
[2017-07-10 21:18] VITALS: BP 137/54
[2017-07-11 01:11] VITALS: BP 127/55
[2017-07-11 06:00] VITALS: BP 132/46
[2017-07-11 07:52] VITALS: BP 136/52
[2017-07-11 08:06] LABS: HEMATOCRIT 30.3 % (36.0-48.0); HEMOGLOBIN 9.8 g/dL (12-16)
[2017-07-11] MEDS ORDERED: ELIQUIS2.5 MG PO (08:29)
[2017-07-11] MEDS ORDERED: HYDROCODONE-APA1 TAB PO (08:30)
== END 2017-07-11 14:45 | disposition home or self-care (01) | DRG 467 ==
LOC: D.SDCHOLD 07-08 06:55 → D.MS 07-08 06:55 → D.SDCHOLD 07-08 09:10 → D.MS 07-08 17:52
PROVIDERS: Orthopaedic Surgery
PROC: 0SPC0JZ Removal of Synthetic Substitute from Right Knee Joint, Open Approach (ICD-10-PCS; principal; 2017-07-08 09:45)
PROC: 0SRC0JZ Replacement of Right Knee Joint with Synthetic Substitute, Open Approach (ICD-10-PCS; 2017-07-08 09:45)
DX: T84.84XA Pain due to internal orthopedic prosthetic devices, implants and grafts, initial encounter (principal); D62 Acute posthemorrhagic anemia; J43.9 Emphysema, unspecified

== ENCOUNTER → 2017-07-15 11:16 | Outpatient (CLI) | payer MEDICARE ==
[2017-07-09 11:24] VITALS: BMI 22.5
== END | disposition home or self-care (01) ==
LOC: D.US 11:16
DX: R60.0 Localized edema (principal); M79.604 Pain in right leg

== ENCOUNTER → 2018-03-06 08:25 | Outpatient (CLI) | payer MEDICARE ==
[2017-07-09 11:24] VITALS: BMI 22.5
[~2018-03-06 08:25] MED LIST changes: +FLOMAX0.4 MG PO; +KEFLEX500 MG PO
== END | disposition home or self-care (01) ==
LOC: D.CT 08:25
DX: M54.2 Cervicalgia (principal)

== ENCOUNTER 2018-03-25 16:40 | Inpatient (IN) | payer MEDICARE ==
[~2018-03-25] VITALS: Ht 157.5 cm; Wt 58.1 kg
--- NOTE | ~2018-03-25 | MORECARE ---
CASE MANAGEMENT DISCHARGE SUMMARY PATIENT: DOMENICO MEJIA I UNIT: [id number] ADM DATE: 03/25/18 AGE: 78 : 40 SEX: F ROOM/BED: D.2132 AUTHOR: JAHAIRA ESTRADA PHYSICIAN: REFERRING PHYSICIAN: JULIO TITUS MD DATE OF SERVICE: 04/07/18 Discharge Plan Patient Name: DOMENICO MEJIA [facility] [facility] 1940 Planned Disposition: Inpatient Rehab Anticipated Discharge Date: 04/05/18 Discharge Date: 04/05/2018 Expected LOS: 11 Initial Reviewer: [email or web address] Initial Review Date: 03/25/2018 Generated: 04/07/18 9:10 am Comments DCP- Discharge Planning Updated by [email or web address]: Bonifacio Mike on 04/04/18 3:[address] Patient Name: DOMENICO MEJIA Encounter No: [id number] : 1940 Primary Insurance: [facility] MEDIC[facility] SOLUTIONS Anticipated DC Date: 04-07-2018 Planned Disposition: Inpatient Rehab External Planned Provider: [facility] DCP follow-up note: CM RECEIVED ORDER FOR INPATIENT REHAB PRESCREENING, MET WITH PT IN ROOM, DISCUSSED REHAB AVAILABILITY [facility] PROVIDERS, INPATIENT AND RETIREMENT FACILITY PROVIDERS AND LOCATIONS. PT WOULD LIKE TO BE CONSIDERED FOR REHAB AT [facility]. PT UNDERSTANDS THAT HER INSURANCE COMPANY WILL HAVE TO PROVIDE PRE AUTHORIZATION FOR INPATIENT REHAB SERVICES WHICH MAY TAKE SEVERAL DAYS. IMPORTANT MESSAGE FROM MEDICARE PROVIDED AND EXPLAINED. CM WAITING INPATIENT REHAB PRESCREENING WELL ADMISSION DETERMINATION FROM [facility]. BONIFACIO MIKE, CASE MANAGEMENT JUSTINA BARDALES DCP- Discharge Planning Updated by [email or web address]: Bonifacio Mike on 03/27/18 3:[address] Patient Name: DOMENICO MEJIA Admission Status: Urgent Accout number: [id number] Admission Date: 03-25-2018 : 1940 Admission Diagnosis:ACUTE KIDNEY FAILURE, UNSPECIFIED Attending: JULIO TITUS Current LOS: 2 Anticipated DC Date: 03-28-2018 Planned Disposition: Home Primary Insurance: [facility] MEDICARE SOLUTIONS Discharge Planning Comments: CM MET WITH PT IN ROOM TO DISCUSS DISCHARGE PLANNING AND NEEDS. PT REPORTS LIVING AT HOME INDEPENDENTLY, ALSON IN THE HOME IS PT'S ADULT SON. PT REPORTS HAVING ALL NEEDED MEDICAL EQUIPMENT FROM [facility] AND NO OUTSIDE SERVICES ASSISTING IN THE HOME. CM DISCUSSED AVAILABILITY OF HOME HEALTH, REHAB SERVICES AND MEDICAL EQUIPMENT. PT DENIES DISCHARGE NEEDS, REPORTS HER SON WILL PICK HER UP FOR DISCHARGE HOME. IMPORTANT MESSAGE FROM MEDICARE PROVIDED AND EXPLAINED. PT PLANS TO DISCHARGE HOME WITH SON, DENIES NEEDS AT THIS TIME. CM TO FOLLOW AND ASSIST IF NEEDED. Occupational Therapy Supervisor: Bonifacio Mike DCPIA - Discharge Planning Initial Assessment Updated by [email or web address]: Bonifacio Mike on 03/27/18 3:47 pm * Is the patient Alert and Oriented? Yes * How many steps to enter\exit or inside your home? * PCP DR. CONNER * Pharmacy [facility] [address] * Preadmission Environment Home with Family * ADLs Independent * Equipment Cane Nebulizer Oxygen Shower Chair Walker * Other Equipment HOME OXYGEN ONLY [facility] - PROVIDER * List name and contact numbers for known caregivers / representatives who currently or will assist patient after discharge: SHEILA SHARMA, SON, * Verbal permission to speak to the caregivers and representatives has been obtained from the patient. N/A * Community resources currently utilized None * Please name any agencies selected above. NONE * Additional services required to return to the preadmission environment? No * Can the patient safely return to the preadmission environment? Yes * Has this patient been hospitalized within the prior 30 days at any hospital? No Coverage Notice Reviewer: [email or web address] Simon Mike Notice Issued Date-Time: 03/27/2018 15:40 Notice Type: IM Discharge Notice Notice Delivered To: Patient Relationship to Patient: Electrician Assistant Name: Delivery Method: HAND - Hand Delivered Lisa Days: Prior Verbal Notification: Recipient Understood Notice: Yes Recipient Signature: Yes Med Rec Note Co-signed by Attending: Coverage Notice Comment: Reviewer: [email or web address] Simon Mike Notice Issued Date-Time: 04/04/2018 14:50 Notice Type: IM Discharge Notice Notice Delivered To: Patient Relationship to Patient: Electrician Assistant Name: Delivery Method: HAND - Hand Delivered Lisa Days: Prior Verbal Notification: Recipient Understood Notice: Yes Recipient Signature: Yes Med Rec Note Co-signed by Attending: Coverage Notice Comment: Last DP export: 11/2/18 3:53 p Patient Name: DOMENICO MEJIA Page [phone] at 0810 All edits/amendments must be made on the electronic document DICTATION DATE: 04/07/18809 GAMEMASTER: [email or web address] 04/07/18809 RPT#: [id number] DC DATE:04/05/18 STATUS: DIS IN [facility] [address] [place] [address] END OF REPORT
--- NOTE | ~2018-03-25 | MORECARE ---
CASE MANAGEMENT DISCHARGE SUMMARY PATIENT: DOMENICO MEJIA I UNIT: [id number] ADM DATE: 03/25/18 AGE: 78 : 40 SEX: F ROOM/BED: D.2132 AUTHOR: JAHAIRA ESTRADA PHYSICIAN: REFERRING PHYSICIAN: JULIO TITUS MD DATE OF SERVICE: 04/04/18 Discharge Plan Patient Name: DOMENICO MEJIA [facility] [facility] 1940 Planned Disposition: Inpatient Rehab Anticipated Discharge Date: 04/07/18 Discharge Date: Expected LOS: 13 Initial Reviewer: [email or web address] Initial Review Date: 03/25/2018 Generated: 04/04/18 4:53 pm Comments DCP- Discharge Planning Updated by [email or web address]: Bonifacio Mike on 04/04/18 2:[address] Patient Name: DOMENICO MEJIA Encounter No: [id number] : 1940 Primary Insurance: [facility] MEDICARE SOLUTIONS Anticipated DC Date: 04-07-2018 Planned Disposition: Inpatient Rehab External Planned Provider: [facility] DCP follow-up note: CM RECEIVED ORDER FOR INPATIENT REHAB PRESCREENING, MET WITH PT IN ROOM, DISCUSSED REHAB AVAILABILITY WELL HOME HEALTH PROVIDERS, INPATIENT AND ALF FACILITY PROVIDERS AND LOCATIONS. PT WOULD LIKE TO BE CONSIDERED FOR REHAB AT [facility]. PT UNDERSTANDS THAT HER INSURANCE COMPANY WILL HAVE TO PROVIDE PRE AUTHORIZATION FOR INPATIENT REHAB SERVICES WHICH MAY TAKE SEVERAL DAYS. IMPORTANT MESSAGE FROM MEDICARE PROVIDED AND EXPLAINED. CM WAITING INPATIENT REHAB PRESCREENING WELL ADMISSION DETERMINATION FROM [facility]. BONIFACIO MIKE, CASE MANAGEMENT JUSTINA BARDALES DCP- Discharge Planning Updated by [email or web address]: Bonifacio Mike on 03/27/18 2:[address] Patient Name: DOMENICO MEJIA Admission Status: Urgent Accout number: [id number] Admission Date: 03-25-2018 : 1940 Admission Diagnosis:ACUTE KIDNEY FAILURE, UNSPECIFIED Attending: JULIO TITUS Current LOS: 2 Anticipated DC Date: 03-28-2018 Planned Disposition: Home Primary Insurance: [facility] MEDICARE SOLUTIONS Discharge Planning Comments: CM MET WITH PT IN ROOM TO DISCUSS DISCHARGE PLANNING AND NEEDS. PT REPORTS LIVING AT HOME INDEPENDENTLY, ALSON IN THE HOME IS PT'S ADULT SON. PT REPORTS HAVING ALL NEEDED MEDICAL EQUIPMENT FROM [facility] EM[facility]GENC[facility] AND NO OUTSIDE SERVICES ASSISTING IN THE HOME. CM DISCUSSED AVAILABILITY OF HOME HEALTH, REHAB SERVICES AND MEDICAL EQUIPMENT. PT DENIES DISCHARGE NEEDS, REPORTS HER SON WILL PICK HER UP FOR DISCHARGE HOME. IMPORTANT MESSAGE FROM MEDICARE PROVIDED AND EXPLAINED. PT PLANS TO DISCHARGE HOME WITH SON, DENIES NEEDS AT THIS TIME. CM TO FOLLOW AND ASSIST IF NEEDED. Traffic Checker: Bonifacio Mike DCPIA - Discharge Planning Initial Assessment Updated by [email or web address]: Bonifacio Mike on 03/27/18 3:47 pm * Is the patient Alert and Oriented? Yes * How many steps to enter\exit or inside your home? * PCP DR. CONNER * Pharmacy [facility] [address] * Preadmission Environment Home with Family * ADLs Independent * Equipment Cane Nebulizer Oxygen Shower Chair Walker * Other Equipment HOME OXYGEN ONLY [facility] - PROVIDER * List name and contact numbers for known caregivers / representatives who currently or will assist patient after discharge: SHEILA SHARMA, SON, * Verbal permission to speak to the caregivers and representatives has been obtained from the patient. N/A * Community resources currently utilized None * Please name any agencies selected above. NONE * Additional services required to return to the preadmission environment? No * Can the patient safely return to the preadmission environment? Yes * Has this patient been hospitalized within the prior 30 days at any hospital? No Coverage Notice Reviewer: [email or web address] Simon Mike Notice Issued Date-Time: 03/27/2018 15:40 Notice Type: IM Discharge Notice Notice Delivered To: Patient Relationship to Patient: Clinical Data Specialist Name: Delivery Method: HAND - Hand Delivered Lisa Days: Prior Verbal Notification: Recipient Understood Notice: Yes Recipient Signature: Yes Med Rec Note Co-signed by Attending: Coverage Notice Comment: Reviewer: [email or web address] Simon Mike Notice Issued Date-Time: 04/04/2018 14:50 Notice Type: IM Discharge Notice Notice Delivered To: Patient Relationship to Patient: Clinical Data Specialist Name: Delivery Method: HAND - Hand Delivered Lisa Days: Prior Verbal Notification: Recipient Understood Notice: Yes Recipient Signature: Yes Med Rec Note Co-signed by Attending: Coverage Notice Comment: Last DP export: 03/27/18 2:55 Patient Name: DOMENICO MEJIA Page [id number] at 1553 All edits/amendments must be made on the electronic document DICTATION DATE: 04/04/181552 BATTERY INSPECTOR: AKIKO 04/04/181552 RPT#: [id number] DC DATE: STATUS: ADM IN [facility] [address] [place] [address] END OF REPORT
--- NOTE | ~2018-03-25 | MORECARE ---
CASE MANAGEMENT DISCHARGE SUMMARY PATIENT: DOMENICO MEJIA I UNIT: [id number] ADM DATE: 03/25/18 AGE: 78 : 40 SEX: F ROOM/BED: D.1343 AUTHOR: SEAN,DOC PHYSICIAN: REFERRING PHYSICIAN: JULIO TITUS MD DATE OF SERVICE: 03/27/18 Discharge Plan Patient Name: DOMENICO MEJIA Facility: [facility]:[place] : 1940 Planned Disposition: Home Anticipated Discharge Date: 03/28/18 Discharge Date: Expected LOS: 3 Initial Reviewer: [email or web address] Initial Review Date: 03/25/2018 Generated: 03/27/18 4:55 pm Comments DCP- Discharge Planning Updated by [email or web address]: Bonifacio Angela on 03/27/18 2:[address] Patient Name: DOMENICO MEJIA Admission Status: Urgent Accout number: [id number] Admission Date: 03-25-2018 : 1940 Admission Diagnosis:ACUTE KIDNEY FAILURE, UNSPECIFIED Attending: JULIO TITUS Current LOS: 2 Anticipated DC Date: 03-28-2018 Planned Disposition: Home Primary Insurance: [facility] MEDICARE SOLUTIONS Discharge Planning Comments: CM MET WITH PT IN ROOM TO DISCUSS DISCHARGE PLANNING AND NEEDS. PT REPORTS LIVING AT HOME INDEPENDENTLY, ALSON IN THE HOME IS PT'S ADULT SON. PT REPORTS HAVING ALL NEEDED MEDICAL EQUIPMENT FROM [facility] AND NO OUTSIDE SERVICES ASSISTING IN THE HOME. CM DISCUSSED AVAILABILITY OF HOME HEALTH, REHAB SERVICES AND MEDICAL EQUIPMENT. PT DENIES DISCHARGE NEEDS, REPORTS HER SON WILL PICK HER UP FOR DISCHARGE HOME. IMPORTANT MESSAGE FROM MEDICARE PROVIDED AND EXPLAINED. PT PLANS TO DISCHARGE HOME WITH SON, DENIES NEEDS AT THIS TIME. CM TO FOLLOW AND ASSIST IF NEEDED. Stock Worker: Bonifacio Angela DCPIA - Discharge Planning Initial Assessment Updated by [email or web address]: Bonifacio Angela on 03/27/18 3:47 pm * Is the patient Alert and Oriented? Yes * How many steps to enter\exit or inside your home? * PCP DR. CONNER * Pharmacy [facility] [address] * Preadmission Environment Home with Family * ADLs Independent * Equipment Cane Nebulizer Oxygen Shower Chair Walker * Other Equipment HOME OXYGEN ONLY [facility] - PROVIDER * List name and contact numbers for known caregivers / representatives who currently or will assist patient after discharge: SHEILA SHARMA, CARMELA, * Verbal permission to speak to the caregivers and representatives has been obtained from the patient. N/A * Community resources currently utilized None * Please name any agencies selected above. NONE * Additional services required to return to the preadmission environment? No * Can the patient safely return to the preadmission environment? Yes * Has this patient been hospitalized within the prior 30 days at any hospital? No Coverage Notice Reviewer: [email or web address] Simon Angela Notice Issued Date-Time: 03/27/2018 15:40 Notice Type: IM Discharge Notice Notice Delivered To: Patient Relationship to Patient: Talent Acquisition Coordinator Name: Delivery Method: HAND - Hand Delivered Lisa Days: Prior Verbal Notification: Recipient Understood Notice: Yes Recipient Signature: Yes Med Rec Note Co-signed by Attending: Coverage Notice Comment: Last DP export: 03/27/18 2:48 Patient Name: DOMENICO MEJIA Page [phone] at 1555 All edits/amendments must be made on the electronic document DICTATION DATE: 03/27/18 1555 MARKETING GRAPHICS SPECIALIST: AKIKO 03/27/18 155 RPT#: [id number] DC DATE: STATUS: ADM IN [facility] [address] [place] [address] END OF REPORT
--- NOTE | ~2018-03-25 | MORECARE ---
CASE MANAGEMENT DISCHARGE SUMMARY PATIENT: DOMENICO MEJIA I UNIT: [id number] ADM DATE: 03/25/18 AGE: 78 : 40 SEX: F ROOM/BED: D.2132 AUTHOR: JAHAIRA ESTRADA PHYSICIAN: REFERRING PHYSICIAN: JULIO TITUS MD DATE OF SERVICE: 03/27/18 Discharge Plan Patient Name: [facility] [facility] 1940 Planned Disposition: Home Anticipated Discharge Date: 03/28/18 Discharge Date: Expected LOS: 3 Initial Reviewer: [email or web address] Initial Review Date: 03/25/2018 Generated: 03/27/18 4:48 pm DCPIA - Discharge Planning Initial Assessment Updated by [email or web address]: Bonifacio Angela on 03/27/18 3:47 pm * Is the patient Alert and Oriented? Yes * How many steps to enter\exit or inside your home? * PCP DR. CONNER * [facility] * Preadmission Environment Home with Family * ADLs Independent * Equipment Cane Nebulizer Oxygen Shower Chair Walker * Other Equipment HOME OXYGEN ONLY [facility] - PROVIDER * List name and contact numbers for known caregivers / representatives who currently or will assist patient after discharge: SHEILA SHARMA, CARMELA, * Verbal permission to speak to the caregivers and representatives has been obtained from the patient. N/A * Community resources currently utilized None * Please name any agencies selected above. NONE * Additional services required to return to the preadmission environment? No * Can the patient safely return to the preadmission environment? Yes * Has this patient been hospitalized within the prior 30 days at any hospital? No Patient Name: DOMENICO MEJIA Page [phone] at 1548 All edits/amendments must be made on the electronic document DICTATION DATE: 03/27/181546 WIRER MAINTENANCE: AKIKO 03/27/181546 RPT#: [id number] DC DATE: STATUS: ADM IN [facility] [address] [place] [address] END OF REPORT
--- NOTE | ~2018-03-25 | HEMODYNAMI ---
PATIENT:DOMENICO MEJIA I MEDICAL RECORD: [id number] : 40 LOCATION:[address] ADMISSION DATE: 03/25/18 Generatedon:03/28/201810:59 Patient name: DOMENICO MEJIA Patient #: [id number] SSN: : 1940 Date of study: 03/28/2018 Page: Of Hemodynamic Procedure Report Patient Data Patient Demographics Procedure consent was obtained First Name: DOMENICO Gender: Female Last Name: ROBERTO : 1940 [facility] Initial: I Age: 78 year(s) Patient #: [id number] Race: Unknown Additional ID: [id number] Contact details Address: [address] [place] [address] State: [place] City: [place] Zip code: [address] Past Medical History Allergies: No known allergies Admission Admission Data Admission Date: 03/25/2018 Admission Time: 16:40 Room #: [facility] Procedure Procedure Types Cath Procedure Peripheral Cath Diagnostic Procedure Nephro Procedure Description Procedure Date Procedure Date: 03/28/2018 Procedure Start Time: 10:30 Procedure Staff Name Function Dillan Lin MD Performing Physician Zuhair Jaeger RT Monitor Zuhair Jaeger RT Scrub Jenna Lynn RN Nurse Procedure Data Cath Procedure Fluoroscopy Diagnostic fluoroscopy Total fluoroscopy Time: 2.2 time: 2.2 min min Diagnostic fluoroscopy Total fluoroscopy dose: 28 dose: 28 mGy mGy Contrast Material Contrast Material Type Amount (ml) Isovue 300 10 Procedure Medications Medication Administration Route Dosage Lidocaine 1% added to field 20 Heparin Flush Bag added to field 1 bags (1000units/500ml NS) Versed I.V. 1 mg Fentanyl I.V. 50 mcg Versed I.V. 1 mg Fentanyl I.V. 50 mcg Hemodynamics Rest Heart Rate: 92 (bpm) Snapshots Pre Cath Intra NCS Post Cath Vital Signs Time Heart Resp SPO2 etCO2 NIBP (mmHg) Rhythm Pain Sedation Rate (ipm) (%) (mmHg) Status Level (bpm) 9:42:19 92 12 100 0 149/53(97) NSR 0 (11) 10(A) , No pain 9:46:35 91 25 100 0 141/77(109) NSR 0 (11) 10(A) , No pain 9:50:47 92 17 0 160/78(121) NSR 0 (11) 10(A) , No pain 9:55:07 93 19 0 154/71(105) NSR 0 (11) 10(A) , No pain 9:59:21 92 16 0 155/79(106) NSR 0 (11) 10(A) , No pain 10:03:37 90 14 0 150/75(112) NSR 0 (11) 10(A) , No pain 10:07:51 91 16 0 150/79(118) NSR 0 (11) 10(A) , No pain 10:12:07 90 23 0 150/75(112) NSR 0 (11) 10(A) , No pain 10:16:25 90 16 100 0 140/73(108) NSR 0 (11) 10(A) , No pain 10:20:43 90 20 0 144/79(94) NSR 0 (11) 10(A) , No pain 10:24:57 90 16 99 0 148/78(105) NSR 0 (11) 10(A) , No pain 10:29:11 87 16 97 0 158/83(137) NSR 0 (11) 10(A) , No pain 10:33:27 90 16 98 0 152/80(112) NSR 0 (11) 10(A) , No pain 10:37:42 86 13 98 0 140/78(112) NSR 0 (11) 10(A) , No pain 10:41:53 85 7 99 0 132/74(100) NSR 0 (11) 10(A) , No pain 10:46:05 87 10 98 0 135/67(100) NSR 0 (11) 10(A) , No pain 10:50:56 97 20 98 0 123/109(119) NSR 0 (11) 10(A) , No pain 10:55:55 97 0 Measuring NSR 0 (11) 10(A) , No pain 10:56:14 0 Out of range NSR 0 (11) 10(A) , No pain Medications Time Medication Route Dose Verified Delivered Reason Notes Effec tiveness by by 10:30:10 Lidocaine 1% added 20ml Dillan Grimaldo used for to vial Lin Lin procedure field MD GUZMAN 10:33:59 Heparin Flush added 1 Dillan Grimaldo used for Bag to bags Lin Lin procedure (1000units/500ml field MD GUZMAN NS) 10:34:14 Versed I.V. 1 mg Dillan West for Lin Shane RN sedation 10:34:26 Fentanyl I.V. 50 Dillan West for mcg Lin Shane RN sedation 10:37:01 Versed I.V. 1 mg Dillan West for Lin Shane RN sedation 10:37:08 Fentanyl I.V. 50 Dillan West for mcg Lin Shane RN sedation Procedure Log Time Note 9:16:19 Zuhair Jaeger RT (R) (CV) sent for patient. Start room use. 9:16:27 Time tracking: Regular hours (M-F 7:00 - 5:00) 9:16:32 Plan of Care:Hemodynamics will remain stable., Cardiac rhythm will remain stable., Comfort level will be maintained., Respiratory function will remain adequate., Patient/ family verbilizes understanding of procedure., Procedure tolerated without complication., Recovers from procedure without complications.. 9:16:38 Patient received from TorqBak II to IR Alert and oriented. Tansferred to table in Prone position. 9:16:39 Correct patient and procedure confirmed by team. 9:16:41 Signed procedure consent form obtained from patient. 9:16:42 ECG and BP/O2 sat monitors applied to patient. 9:16:44 Full Disclosure recording started 9:16:44 - 9:16:49 H&P Date Dictated: 03/28/2018 H&P Addendum completed by physician on da y of procedure. (MUST COMPLETE FOR ALL OUTPATIENTS). 9:16:50 Pre-procedure instructions explained to patient. 9:16:51 Pre-op teaching completed and patient verbalized understanding. 9:16:53 Family in waiting room. 9:16:55 Patient NPO since Midnight. 9:17:03 Patient allergic to No known allergies 9:19:44 Is the patient allergic to Iodine/contrast media? No. 9:19:45 Is patient on blood thinner?No 9:19:47 Patient diabetic? No. 9:19:48 - 9:19:49 ----Pre-sedation anethsthesia assessment.---- 9:19:52 Previous problem with sedation/anesthesia? No ? 9:19:53 Snore? Yes 9:19:55 Sleep apnea? Yes 9:19:58 Deviated septum? No 9:19:59 Opens mouth fully? Yes 9:20:00 Sticks out tongue? Yes 9:20:22 Airway obstruction? Yes ? 9:20:27 Dentures? No ? 9:20:31 Use device set IR Diagnostic 9:20:32 Bag Decanter (2002S) opened to sterile field. 9:20:33 Sterile Angiographic Pack opened to sterile field. 9:20:34 Tegaderm 4 x 4 (1626W) opened to sterile field. 9:37:43 Patient pain scale 0/10 no pain. 9:37:58 IV patent on arrival in right hand with 0.9% NaCl at KVO. 9:38:00 Sharps counted by scrub and verified by R.N. 9:38:01 Alarms reviewed by R. N. 9:38:10 Lumbar area was prepped with chlora-prep and draped in sterile fashion 9:40:47 BAG, DRAINAGE EMPTY 600ML W/ANGELLA (FLO500) opened to sterile field. 9:41:05 Vital chart was started 9:41:06 Baseline sample Acquired. 9:48:51 Baseline sample Acquired. 10:30:10 Lidocaine 1% 20ml vial added to field was administered by Dillan Lin MD; used for procedure; 10:30:26 Physician arrived 10:30: --------ALL STOP TIME OUT------ 10:30: Final Timeout: patient, procedure, and site verified with staff and physician. All members of the team are in agreement. 10:30:30 Lumbar site verified by team. 10:30:35 Sedation plan: IV Moderate Sedation Medication:Versed, Fentanyl 10:30:39 Procedure started. 10:30:44 Local anesthetic to Lumbar area with Lidocaine 1% by Dillan Lin MD.INITIAL ACCESS ONLY 10:30:56 KIT, INTRODUCER ACCUSTICK II W/C ([id number]) opened to sterile field. 10:33:59 Heparin Flush Bag (1000units/500ml NS) 1 bags added to field was administered by Dillan Lin MD; used for procedure; 10:34:14 Versed 1 mg I.V. was administered by Jenna Lynn RN; for sedation; 10:34:26 Fentanyl 50 mcg I.V. was administered by Jenna Lynn RN; for sedation ; 10:36:26 ROADRUNNER .035 145 glide wire ([id number]) opened to sterile field. 10:37:01 Versed 1 mg I.V. was administered by Jenna Lynn RN; for sedation; 10:37:03 GLIDE CATHETER 4FR Straight 65cm (CG412) opened to sterile field. 10:37:08 Fentanyl 50 mcg I.V. was administered by Jenna Lynn RN; for sedation ; 10:37:41 PEEL-A-WAY INTRODUCER 9FR. opened to sterile field. 10:39:05 AMPLATZ Super stiff 180cm wire ([id number]) opened to sterile field. 10:39:14 [place] Sci 8FR.X 24CM Ureteral Stent ([id number]) opened to sterile field. 10:40:05 BAG, DRAINAGE EMPTY 600ML W/ANGELLA (MQH126) opened to sterile field. 10:40:06 STOPCOCK 3-Way Large Bore (D18538) opened to sterile field. 10:40:48 Abscession 8Fr drainage catheter ([id number]) opened to sterile field. 10:46:49 SUTURE ETHILON 2-0 BLK MONO FS opened to sterile field. 10:48:51 Tegaderm 6 x 8 (1628) opened to sterile field. 10:48:57 Procedure ended.(Physican Out) 10:49:15 Fluoroscopy time 02.20 minutes. 10:49:19 Fluoroscopy dose: 28 mGy 10:49:19 Flurop Dose total: 28 10:50:21 Contrast amount:Isovue 300 10ml. 10:50:23 Sharps counted by scrub and verified by R.N. 10:50:26 Insertion/operative site no bleeding no hematoma. 10:50:36 Post-op/insertion site Left Lumbar area dressed using a 4 x 4 and Tegaderm. 10:50:42 Post procedure instruction explained to patient.Patient verbalizes understanding. 10:50:43 Procedure and supply charges have been captured, reviewed, submitted an d are correct. 10:59:02 Report given to Med II. 10:59:05 Patient transfered to [facility] II with Bed. 10:59:35 Vital chart was stopped Device Usage Item Name Manufacture Quantity Catalog Hospital Part Current Minima l Lot# / Number Charge Number Stock Stock Serial# Code Bag Decanter Microtek 1 [id number] 5 () Medical Inc. Sterile Cardinal 1 [id number] 112021 691527 5 Angiographic Health Pack Tegaderm 4 x 3M 1 1626W 768406 114012 [id number] 5 4 (1626W) BAG, [facility] 2 [id number] 758220 421569 861765 5 DRAINAGE EMPTY 600ML W/ANGELLA (CER030) KIT, [place] 1 [id number] 047489 406814 031453 5 INTRODUCER Scientific ACCUSTICK II W/C ([id number]) [facility] 1 W92823 688738 821459 195234 5 1022310 .035 145 glide wire (X64705) GLIDE Terumo 1 CG412 573920 446225 5 CATHETER 4FR Straight 65cm (CG412) PEEL-A-WAY [facility] 1 W59143 492980 997876 611008 5 [id number] INTRODUCER 9FR. AMPLATZ [place] 1 [id number] 725495 578774 877780 5 [id number] Super stiff Scientific 180cm wire ([id number]) Latrobe Sci [place] 1 [id number] 872227 414310 429864 5 8FR.X 24CM Scientific Ureteral Stent ([id number]) [facility] 1 N69529 341642 0123 091196 5 3-Way Large Bore (Y39038) Abscession Angiodynamics 1 [id number] 458371 240363 205467 5 8Fr drainage catheter (00371973) SUTURE Ethicon 1 664H 190362 749869 5 ETHILON 2-0 BLK MONO FS Tegaderm 6 x 3M 1 1628 391585 627418 5 8 (4427) Signature Audit [place] Stage Time Signature Unsigned Intra-Procedure 03/28/2018 Zuhair 10:59:31 AM Heide RT (R) (CV) Signatures Monitor : Zuhair Signature : Heide RT Date : Time : [place] [address] [place] [address]
--- NOTE | ~2018-03-25 | CN ---
PATIENT NAME:DOMENICO MEJIA I MEDICAL RECORD: [id number] : 40 LOCATION:D. D.2132 ADMIT DATE: 03/25/18 ACCOUNT: [id number] CONSULTING PHYSICIAN: JENIFER RESTREPO MD REFERRING PHYSICIAN: JULIO TITUS MD DATE OF CONSULTATION: 03/25/2018 NEPHROLOGY CONSULTATION REASON FOR CONSULTATION: Acute kidney injury on CKD. HISTORY OF PRESENT ILLNESS: This is a 78-year-old female followed by Dr. Herrera that is a relatively poor historian and is not really sure why she was admitted to the hospital. She mostly just wanted to get up and get to the chair today, said she had seen a number of doctors, does not recall having CKD, but her creatinine was 1.8 earlier this year in June. REVIEW OF SYSTEMS: All negative. No dysuria, pyuria, hematuria, chest pain, shortness of breath, nausea, vomiting. PAST MEDICAL HISTORY: 1. CKD with a baseline creatinine of 1.8 in June of this year. 2. Glasses and dentures. 3. COPD, emphysema, asthma, home O2 followed by pulmonary, Dr. Aranda and Dr. Vallejo. 4. Acid reflux. 5. Constipation. 6. Advanced age. 7. Iron deficiency anemia. 8. Anemia of CKD. 9. Hyperlipidemia. PAST SURGICAL HISTORY: Cholecystectomy, knee surgery, hysterectomy, thyroid removal, and gastric bypass. ALLERGIES: NKDA. HOME MEDICATIONS: Obtaining previously, she had been Boniva, Prilosec, Synthroid, Advair, DuoNebs, Theragran, Restoril, and Lipitor. FAMILY HISTORY: Noncontributory. SOCIAL HISTORY: Never used tobacco, no alcohol, no recreational drugs. She is retired. PHYSICAL EXAMINATION: VITAL SIGNS: Blood pressure 128/53, 84 pulse, 99.1 temp, pulse ox 98%. GENERAL: She is alert, oriented to the hospital. HEENT: Normocephalic, atraumatic. NEUROLOGIC: Cranial nerves II through XII intact. No JVD. CHEST: Regular rhythm. S1, S2. LUNGS: Grossly clear, but coarse. ABDOMEN: Nontender. Positive bowel sounds. EXTREMITIES: No clubbing, cyanosis or lower extremity edema. No focal neurological deficits. No rash. CONSULT REPORT [id number] DOMENICO MEJIA I LABORATORY DATA: Sodium is 122, potassium 3.5, chloride 88, BUN 86, creatinine 4.2, calcium 8.1. AST and ALT are normal, alkaline phosphatase 173. TSH 0.86. ASSESSMENT AND PLAN: 1. Acute kidney injury on CKD, unsure of her baseline creatinine, trial of IV fluids. 2. Hyponatremia. Sodium is 122. She has been placed on normal saline appropriately and will follow her sodium level. 3. Incomplete database. 4. Hypothyroid. She is on replacement therapy. 5. COPD and reactive airway disease followed by pulmonary, inhalers as needed. 6. Hypoalbuminemia. She does not appear to be malnourished. We will check her urinalysis, which is still pending; however, back in June she did not have significant protein with just trace proteinuria, but did have cystitis at that time and grew Staph aureus back in 2016. 7. Hyperlipidemia. We will review her medication list as she has been on a statin and add a CPK. PLAN: 1. Renal ultrasound. 2. May need in and out catheter for her UA, urine culture. She is unable to collect a sample and we will discuss with her nurse. TRANSINT:[id number] Voice Confirmation ID: [id number] DOCUMENT ID: [id number] JENIFER RESTREPO MD at 1239 CC: [id number] DICTATION DATE: 03/26/18 1041 OPTICS TECHNICAL OFFICER: 03/26/18 1104 ADM IN [place] [address] [place] [id number]
[~2018-03-25 16:40] MED LIST changes: -FLOMAX0.4 MG PO; -KEFLEX500 MG PO
[2018-03-25 17:38] VITALS: BP 128/53; BMI 22.6
[2018-03-25 18:24] LABS: BASOPHILS 0.3 % (0-2); EOSINOPHILS 0.3 % (0-7); HEMATOCRIT 36.5 % (36.0-48.0); HEMOGLOBIN 12.3 g/dL (12-16); IMMATURE GRANULOCYTES 0.8 % (0-5); LYMPHOCYTES 7.9 % (15-50); MCH 31.1 pg (26.0-34.0); MCHC 33.7 g/dL (31.0-37.0); MCV 92.4 fL (80.0-100.0); MEAN PLATELET VOLUME 11.5 fL (7.4-10.4); MONOCYTES 12.3 % (2-11); NEUTROPHILS 78.4 % (40-80); PLATELET COUNT 162 10x3/uL (130-400); RBC 3.95 10x6/uL (4.00-5.40); WBC 15.9 10x3/uL (4.8-10.8)
[2018-03-25 18:59] LABS: ALBUMIN 2.4 g/dL (3.4-5.0); ANION GAP 16.2 mmol/L (8-16); BILIRUBIN - TOTAL 0.83 mg/dL (0.2-1.3); CARBON DIOXIDE 21.3 mmol/L (21.0-32.0); CREATININE - SERUM 4.2 mg/dL (0.6-1.3); POTASSIUM - SERUM 3.5 mmol/L (3.5-5.1); T4 THYROXINE 6.9 ug/dL (4.7-13.3); THYROID STIMULATING HORMONE 0.86 uIU/mL (0.36-3.74)
[2018-03-25 19:08] LABS: CALCIUM 8.1 mg/dL (8.5-10.1)
[2018-03-25 20:00] VITALS: BP 153/71
[2018-03-26 01:10] VITALS: BP 103/40
[2018-03-26 06:06] VITALS: BP 128/51
[2018-03-26 07:23] LABS: BASOPHILS 0.1 % (0-2); EOSINOPHILS 0.3 % (0-7); HEMATOCRIT 33.9 % (36.0-48.0); HEMOGLOBIN 11.3 g/dL (12-16); IMMATURE GRANULOCYTES 0.9 % (0-5); LYMPHOCYTES 11.7 % (15-50); MCH 30.5 pg (26.0-34.0); MCHC 33.3 g/dL (31.0-37.0); MCV 91.4 fL (80.0-100.0); MEAN PLATELET VOLUME 10.7 fL (7.4-10.4); MONOCYTES 9.5 % (2-11); NEUTROPHILS 77.5 % (40-80); PLATELET COUNT 185 10x3/uL (130-400); RBC 3.71 10x6/uL (4.00-5.40); RDW 14.2 % (11.5-14.5); WBC 18.1 10x3/uL (4.8-10.8)
[2018-03-26 07:44] LABS: ANION GAP 19.1 mmol/L (8-16); CALCIUM 8.1 mg/dL (8.5-10.1); CARBON DIOXIDE 20.6 mmol/L (21.0-32.0); CREATININE - SERUM 4.3 mg/dL (0.6-1.3); POTASSIUM - SERUM 3.7 mmol/L (3.5-5.1)
[2018-03-26 08:24] VITALS: BP 133/59
[2018-03-26 11:27] VITALS: BP 139/49
[2018-03-26 12:15] LABS: APPEARANCE CLEAR (CLEAR); BILIRUBIN NEGATIVE (NEGATIVE); COLOR YELLOW (YELLOW); GLUCOSE NEGATIVE (NEGATIVE); KETONE NEGATIVE (NEGATIVE); NITRITE NEGATIVE (NEGATIVE); PROTEIN 1+ mg/dL (NEGATIVE); UROBILINOGEN NORMAL (NORMAL)
[2018-03-26 12:18] LABS: AMORPHOUS SEDIMENT <1+ /lpf (NONE SEEN); BACTERIA MANY /hpf (NONE SEEN); EPITHELIAL CELLS 0-5 /hpf (0-5); HYALINE CAST RARE /lpf (NONE SEEN); MUCUS <1+ /lpf (NONE SEEN); WHITE CELLS - URINE 25-50 /hpf (0-5)
[2018-03-26 13:50] VITALS: BMI 23.8
[2018-03-26 15:35] VITALS: BP 128/68
[2018-03-26 16:57] VITALS: Ht 157.5 cm; Wt 58.1 kg
[2018-03-26 20:00] VITALS: BP 111/45
[2018-03-27] VITALS (7 sets, daily range): BP systolic 119–147; BP diastolic 55–86
[2018-03-27 05:57] LABS: HEMATOCRIT 32.6 % (36.0-48.0); HEMOGLOBIN 11.2 g/dL (12-16); MCH 31.5 pg (26.0-34.0); MCHC 34.4 g/dL (31.0-37.0); MCV 91.6 fL (80.0-100.0); MEAN PLATELET VOLUME 10.8 fL (7.4-10.4); PLATELET COUNT 239 10x3/uL (130-400); RBC 3.56 10x6/uL (4.00-5.40); RDW 14.2 % (11.5-14.5); WBC 20.4 10x3/uL (4.8-10.8)
[2018-03-27 06:04] LABS: ANION GAP 17.4 mmol/L (8-16); CREATININE - SERUM 4.1 mg/dL (0.6-1.3); POTASSIUM - SERUM 3.4 mmol/L (3.5-5.1)
[2018-03-27 07:35] LABS: LYMPHOCYTES 10 % (15-50); MONOCYTES 9 % (2-11); NEUTROPHILS 73 % (40-80); PLATELET ESTIMATE NORMAL
[2018-03-28] VITALS (10 sets, daily range): BP systolic 108–139; BP diastolic 50–75
[2018-03-28 05:47] LABS: APTT 38.2 SECONDS (22.8-39.4); INR 1.11 (0.85-1.17); PROTIME 13.9 SECONDS (11.6-15.0)
[2018-03-28 05:56] LABS: ANION GAP 19.4 mmol/L (8-16); CALCIUM 7.8 mg/dL (8.5-10.1); CARBON DIOXIDE 18.8 mmol/L (21.0-32.0); CREATININE - SERUM 3.6 mg/dL (0.6-1.3)
[2018-03-28 05:57] LABS: POTASSIUM - SERUM 4.2 mmol/L (3.5-5.1)
[2018-03-28 05:59] LABS: HEMATOCRIT 30.9 % (36.0-48.0); HEMOGLOBIN 10.3 g/dL (12-16); LYMPHOCYTES 11.4 % (15-50); MCH 30.5 pg (26.0-34.0); MCHC 33.3 g/dL (31.0-37.0); MCV 91.4 fL (80.0-100.0); NEUTROPHILS 82.4 % (40-80); PLATELET COUNT 236 10x3/uL (130-400); RBC 3.38 10x6/uL (4.00-5.40); RDW 14.4 % (11.5-14.5)
[2018-03-28 06:08] LABS: WBC 14.1 10x3/uL (4.8-10.8)
[2018-03-29] VITALS: BP 124/67
[2018-03-29 04:00] VITALS: BP 140/64
[2018-03-29 05:40] LABS: BASOPHILS 0.1 % (0-2); EOSINOPHILS 1.4 % (0-7); HEMATOCRIT 30.1 % (36.0-48.0); HEMOGLOBIN 9.8 g/dL (12-16); IMMATURE GRANULOCYTES 1.7 % (0-5); LYMPHOCYTES 9.9 % (15-50); MCH 30.2 pg (26.0-34.0); MCHC 32.6 g/dL (31.0-37.0); MCV 92.6 fL (80.0-100.0); MEAN PLATELET VOLUME 9.9 fL (7.4-10.4); NEUTROPHILS 80.9 % (40-80); PLATELET COUNT 267 10x3/uL (130-400); RBC 3.25 10x6/uL (4.00-5.40); RDW 14.7 % (11.5-14.5); WBC 16.7 10x3/uL (4.8-10.8)
[2018-03-29 06:10] LABS: ANION GAP 16.9 mmol/L (8-16); CALCIUM 7.4 mg/dL (8.5-10.1); CARBON DIOXIDE 18.1 mmol/L (21.0-32.0); CREATININE - SERUM 3.1 mg/dL (0.6-1.3)
[2018-03-29 09:04] VITALS: BP 144/59
[2018-03-29 13:05] VITALS: BP 139/62
[2018-03-29 15:57] VITALS: BP 128/67
[2018-03-29 21:06] VITALS: BP 158/65
[2018-03-30 01:00] VITALS: BP 150/73
[2018-03-30 05:15] LABS: BASOPHILS 0.2 % (0-2); EOSINOPHILS 0.7 % (0-7); HEMATOCRIT 30.5 % (36.0-48.0); IMMATURE GRANULOCYTES 1.3 % (0-5); LYMPHOCYTES 7.3 % (15-50); MCH 30.6 pg (26.0-34.0); MCHC 32.8 g/dL (31.0-37.0); MCV 93.3 fL (80.0-100.0); MEAN PLATELET VOLUME 9.7 fL (7.4-10.4); MONOCYTES 4.9 % (2-11); NEUTROPHILS 85.6 % (40-80); PLATELET COUNT 286 10x3/uL (130-400); RBC 3.27 10x6/uL (4.00-5.40); RDW 14.5 % (11.5-14.5); WBC 18.8 10x3/uL (4.8-10.8)
[2018-03-30 05:37] LABS: ANION GAP 17.9 mmol/L (8-16); CARBON DIOXIDE 17.4 mmol/L (21.0-32.0); CREATININE - SERUM 2.8 mg/dL (0.6-1.3); POTASSIUM - SERUM 4.3 mmol/L (3.5-5.1)
[2018-03-30 06:12] VITALS: BP 144/61
[2018-03-30 08:24] VITALS: BP 137/60
[2018-03-30 11:08] VITALS: BP 139/46
[2018-03-30 16:14] VITALS: BP 144/72
[2018-03-30 20:21] VITALS: BP 145/73
[2018-03-31 01:24] VITALS: BP 150/62
[2018-03-31 05:36] VITALS: BP 151/59
[2018-03-31 06:04] LABS: BASOPHILS 0.2 % (0-2); HEMATOCRIT 29.8 % (36.0-48.0); HEMOGLOBIN 9.6 g/dL (12-16); IMMATURE GRANULOCYTES 1.6 % (0-5); LYMPHOCYTES 9.5 % (15-50); MCH 30.6 pg (26.0-34.0); MCHC 32.2 g/dL (31.0-37.0); MCV 94.9 fL (80.0-100.0); MEAN PLATELET VOLUME 9.4 fL (7.4-10.4); MONOCYTES 7.5 % (2-11); NEUTROPHILS 80.2 % (40-80); PLATELET COUNT 284 10x3/uL (130-400); RBC 3.14 10x6/uL (4.00-5.40); RDW 14.9 % (11.5-14.5); WBC 17.4 10x3/uL (4.8-10.8)
[2018-03-31 06:23] LABS: ANION GAP 16.3 mmol/L (8-16); CREATININE - SERUM 2.6 mg/dL (0.6-1.3); POTASSIUM - SERUM 4.3 mmol/L (3.5-5.1)
[2018-03-31 08:12] VITALS: BP 150/71
[2018-03-31 11:20] VITALS: BP 145/66
[2018-03-31 15:41] VITALS: BP 147/61
[2018-03-31 19:56] VITALS: BP 145/70
[2018-04-01 00:57] VITALS: BP 145/71
[2018-04-01 05:58] VITALS: BP 143/61
[2018-04-01 08:33] VITALS: BP 138/69
[2018-04-01 11:12] VITALS: BP 135/65
[2018-04-01 11:46] LABS: BASOPHILS 0.2 % (0-2); EOSINOPHILS 0.9 % (0-7); HEMATOCRIT 29.2 % (36.0-48.0); HEMOGLOBIN 9.4 g/dL (12-16); IMMATURE GRANULOCYTES 1.2 % (0-5); LYMPHOCYTES 9.3 % (15-50); MCH 30.2 pg (26.0-34.0); MCHC 32.2 g/dL (31.0-37.0); MCV 93.9 fL (80.0-100.0); MEAN PLATELET VOLUME 9.2 fL (7.4-10.4); MONOCYTES 7.1 % (2-11); NEUTROPHILS 81.3 % (40-80); PLATELET COUNT 294 10x3/uL (130-400); RBC 3.11 10x6/uL (4.00-5.40); RDW 14.8 % (11.5-14.5); WBC 16.9 10x3/uL (4.8-10.8)
[2018-04-01 11:56] LABS: ANION GAP 18.1 mmol/L (8-16); CALCIUM 8.5 mg/dL (8.5-10.1); CARBON DIOXIDE 16.1 mmol/L (21.0-32.0); CREATININE - SERUM 2.5 mg/dL (0.6-1.3); POTASSIUM - SERUM 4.2 mmol/L (3.5-5.1)
[2018-04-01 15:48] VITALS: BP 133/72
[2018-04-01 20:00] VITALS: BP 151/70
[2018-04-02] VITALS: BP 132/59
[2018-04-02 04:00] VITALS: BP 153/61
[2018-04-02 04:53] LABS: BASOPHILS 0.2 % (0-2); EOSINOPHILS 0.9 % (0-7); HEMATOCRIT 28.4 % (36.0-48.0); HEMOGLOBIN 9.1 g/dL (12-16); LYMPHOCYTES 11.5 % (15-50); MCH 30.2 pg (26.0-34.0); MCV 94.4 fL (80.0-100.0); MEAN PLATELET VOLUME 9.7 fL (7.4-10.4); MONOCYTES 7.7 % (2-11); NEUTROPHILS 78.7 % (40-80); PLATELET COUNT 301 10x3/uL (130-400); RBC 3.01 10x6/uL (4.00-5.40); RDW 14.7 % (11.5-14.5); WBC 15.2 10x3/uL (4.8-10.8)
[2018-04-02 05:21] LABS: ANION GAP 16.4 mmol/L (8-16); CALCIUM 8.2 mg/dL (8.5-10.1); CARBON DIOXIDE 16.9 mmol/L (21.0-32.0); CREATININE - SERUM 2.4 mg/dL (0.6-1.3); MAGNESIUM - SERUM 1.4 mg/dL (1.8-2.4); POTASSIUM - SERUM 4.3 mmol/L (3.5-5.1)
[2018-04-02 08:30] VITALS: BP 141/70
[2018-04-02 11:28] VITALS: BP 136/73
[2018-04-02 16:48] VITALS: BP 147/68
[2018-04-02 20:00] VITALS: BP 140/59
[2018-04-03] VITALS: BP 123/54
[2018-04-03 04:00] VITALS: BP 151/61
[2018-04-03 06:08] LABS: BASOPHILS 0.2 % (0-2); EOSINOPHILS 0.9 % (0-7); HEMATOCRIT 31.7 % (36.0-48.0); HEMOGLOBIN 10.3 g/dL (12-16); IMMATURE GRANULOCYTES 0.8 % (0-5); LYMPHOCYTES 11.6 % (15-50); MCH 30.5 pg (26.0-34.0); MCHC 32.5 g/dL (31.0-37.0); MCV 93.8 fL (80.0-100.0); MONOCYTES 7.5 % (2-11); RBC 3.38 10x6/uL (4.00-5.40); RDW 14.7 % (11.5-14.5); WBC 15.9 10x3/uL (4.8-10.8)
[2018-04-03 06:20] LABS: ANION GAP 17.9 mmol/L (8-16); CALCIUM 8.3 mg/dL (8.5-10.1); CARBON DIOXIDE 19.8 mmol/L (21.0-32.0); CREATININE - SERUM 2.6 mg/dL (0.6-1.3); MAGNESIUM - SERUM 1.6 mg/dL (1.8-2.4); POTASSIUM - SERUM 3.7 mmol/L (3.5-5.1)
[2018-04-03 06:36] LABS: PLATELET COUNT 385 10x3/uL (130-400)
[2018-04-03 08:10] VITALS: BP 148/71
[2018-04-03 11:19] VITALS: BP 146/71
[2018-04-03 15:28] VITALS: BP 143/69
[2018-04-03 20:00] VITALS: BP 150/66
[2018-04-04] VITALS: BP 139/60
[2018-04-04 04:00] VITALS: BP 137/59
[2018-04-04 07:07] LABS: BASOPHILS 0.1 % (0-2); EOSINOPHILS 0.7 % (0-7); HEMATOCRIT 26.9 % (36.0-48.0); HEMOGLOBIN 8.7 g/dL (12-16); IMMATURE GRANULOCYTES 0.7 % (0-5); LYMPHOCYTES 10.4 % (15-50); MCHC 32.3 g/dL (31.0-37.0); MCV 92.8 fL (80.0-100.0); MEAN PLATELET VOLUME 9.4 fL (7.4-10.4); MONOCYTES 8.1 % (2-11); PLATELET COUNT 370 10x3/uL (130-400); RDW 14.4 % (11.5-14.5); WBC 13.7 10x3/uL (4.8-10.8)
[2018-04-04 07:31] LABS: ANION GAP 15.4 mmol/L (8-16); CALCIUM 7.9 mg/dL (8.5-10.1); CARBON DIOXIDE 20.5 mmol/L (21.0-32.0); CREATININE - SERUM 2.5 mg/dL (0.6-1.3); PHOSPHOROUS 3.4 mg/dL (2.5-4.9); POTASSIUM - SERUM 3.9 mmol/L (3.5-5.1)
[2018-04-04 07:32] LABS: MAGNESIUM - SERUM 2.1 mg/dL (1.8-2.4)
[2018-04-04 08:05] VITALS: BP 120/64
[2018-04-04 10:12] LABS: APPEARANCE CLEAR (CLEAR); BILIRUBIN NEGATIVE (NEGATIVE); COLOR YELLOW (YELLOW); EPITHELIAL CELLS 0-5 /hpf (0-5); GLUCOSE NEGATIVE (NEGATIVE); KETONE SMALL mg/dL (NEGATIVE); NITRITE NEGATIVE (NEGATIVE); PROTEIN 1+ mg/dL (NEGATIVE); RED CELLS - URINE 0-5 /hpf (0-5); UROBILINOGEN NORMAL (NORMAL); WHITE CELLS - URINE 0-5 /hpf (0-5)
[2018-04-04 11:59] VITALS: BP 130/64
[2018-04-04 14:53] VITALS: BP 128/59
[2018-04-04 21:00] VITALS: BP 129/57
[2018-04-05] VITALS: BP 141/60
[2018-04-05 04:00] VITALS: BP 125/55
[2018-04-05 07:04] LABS: BASOPHILS 0.1 % (0-2); EOSINOPHILS 0.5 % (0-7); HEMATOCRIT 25.1 % (36.0-48.0); HEMOGLOBIN 8.2 g/dL (12-16); IMMATURE GRANULOCYTES 0.5 % (0-5); LYMPHOCYTES 8.2 % (15-50); MCH 30.3 pg (26.0-34.0); MCHC 32.7 g/dL (31.0-37.0); MCV 92.6 fL (80.0-100.0); MONOCYTES 8.7 % (2-11); PLATELET COUNT 427 10x3/uL (130-400); RBC 2.71 10x6/uL (4.00-5.40); RDW 14.5 % (11.5-14.5); WBC 15.4 10x3/uL (4.8-10.8)
[2018-04-05 07:24] LABS: ANION GAP 15.8 mmol/L (8-16); CALCIUM 7.4 mg/dL (8.5-10.1); CARBON DIOXIDE 20.7 mmol/L (21.0-32.0); CREATININE - SERUM 2.3 mg/dL (0.6-1.3); MAGNESIUM - SERUM 1.7 mg/dL (1.8-2.4); PHOSPHOROUS 3.5 mg/dL (2.5-4.9); POTASSIUM - SERUM 3.5 mmol/L (3.5-5.1)
[2018-04-05 07:58] VITALS: BP 135/57
[2018-04-05 12:05] VITALS: BP 127/57
[2018-04-05] MEDS ORDERED: KEFLEX500 MG PO (14:04)
[2018-04-05] MEDS ORDERED: FLOMAX0.4 MG PO (14:04)
[2018-04-05 15:53] VITALS: BP 135/64
== END 2018-04-05 16:01 | DRG 682 ==
LOC: D.M2 16:40
PROVIDERS: Family Medicine; Internal Medicine Nephrology; Specialist
PROC: 0T773DZ Dilation of Left Ureter with Intraluminal Device, Percutaneous Approach (ICD-10-PCS; 2018-03-28)
PROC: BT121ZZ Fluoroscopy of Left Kidney using Low Osmolar Contrast (ICD-10-PCS; 2018-03-28)
PROC: 0T9130Z Drainage of Left Kidney with Drainage Device, Percutaneous Approach (ICD-10-PCS; principal; 2018-03-28 09:15)
DX: N17.9 Acute kidney failure, unspecified (principal); G93.41 Metabolic encephalopathy; E87.1 Hypo-osmolality and hyponatremia; N39.0 Urinary tract infection, site not specified; J96.11 Chronic respiratory failure with hypoxia; J43.9 Emphysema, unspecified; K21.9 Gastro-esophageal reflux disease without esophagitis; D63.1 Anemia in chronic kidney disease; E78.5 Hyperlipidemia, unspecified; E03.9 Hypothyroidism, unspecified; N13.1 Hydronephrosis with ureteral stricture, not elsewhere classified; N18.3 Chronic kidney disease, stage 3 (moderate); N13.30 Unspecified hydronephrosis

== ENCOUNTER → 2018-06-23 09:02 | Outpatient (CLI) | payer MEDICARE ==
[2018-03-26 16:57] VITALS: BMI 23.8
[~2018-06-23 09:02] MED LIST changes: +FLOMAX0.4 MG PO; +KEFLEX500 MG PO
== END | disposition home or self-care (01) ==
LOC: D.US 09:02
DX: N83.8 Other noninflammatory disorders of ovary, fallopian tube and broad ligament (principal)

== ENCOUNTER → 2018-11-26 19:21 | Outpatient (CLI) | payer MEDICARE ==
[2018-03-26 16:57] VITALS: BMI 23.8
== END | disposition home or self-care (01) ==
LOC: D.LABREF 19:21
PROVIDERS: ATTEND Urology
DX: N39.0 Urinary tract infection, site not specified (principal)

== ENCOUNTER 2018-11-27 12:54 | Outpatient (CLI) | payer MEDICARE ==
[~2018-11-27] VITALS: Ht 157.5 cm; Wt 56.4 kg
[2018-11-27 13:59] VITALS: BP 127/47; Ht 157.5 cm; Wt 56.4 kg
--- NOTE | 2018-11-27 14:59 | NUR ---
1342 20G ANGIOCATH STARTED IN RIGHT WRIST FOR IV ABX. 2 FAILED ATTEMPTS TO START IV PRIOR. VANCAMYCIN 500MG IV STARTED ON ALARIS PUMP AT 100CC/HR. ABX TO INFUSE OVER 1 HOUR.
--- NOTE | 2018-11-27 15:01 | NUR ---
1452 IV ABX INFUSED. PT DENIES ITCHING OR RASH. AN EDUCATIONAL SHEET ON VANCOMYCIN GIVEN TO PT TO REVIEW AND LEARN ABOUT POSSIBLE SIDE EFFECTS OR REACTIONS TO THIS MEDICATION.
--- NOTE | 2018-11-27 15:02 | NUR ---
1500 IV DC'D/CATHETER INTACT/NO BLEEDING OR SWELLING AT SITE/BANDAID APPLIED.
--- NOTE | 2018-11-27 15:22 | NUR ---
1515 PT DENIES ITCHING OR ANY RASHES. PT STATES SHE IS READY TO GO HOME.
== END 2018-11-27 15:15 | disposition home or self-care (01) ==
LOC: D.OPS 12:54
PROVIDERS: ATTEND Family Medicine
DX: N39.0 Urinary tract infection, site not specified (principal)

== ENCOUNTER 2018-11-28 08:48 | Outpatient (CLI) | payer MEDICARE ==
[~2018-11-28] VITALS: Ht 157.5 cm; Wt 56.4 kg
[2018-11-28 09:40] VITALS: Ht 157.5 cm; Wt 56.4 kg
== END 2018-11-28 10:40 | disposition home or self-care (01) ==
LOC: D.OPS 08:48
PROVIDERS: ATTEND Family Medicine
DX: N39.0 Urinary tract infection, site not specified (principal)

== ENCOUNTER 2018-11-29 08:32 | Outpatient (CLI) | payer MEDICARE ==
[2018-11-28 09:40] VITALS: Ht 157.5 cm
--- NOTE | 2018-11-29 09:15 | NUR ---
PT RECEIVED TO ROOM. FOR IV ABX THERAPY. ALERT AND ORIENTED WITH IV STARTED WITH 22G X1 STICK. AWAITING ON IB ABX. 128/47 71 R 18 TEMP 98.7 PULSE OX 98%
--- NOTE | 2018-11-29 10:18 | NUR ---
IV ABX STARTED WITH NO S/S OF REACTION NOTED
--- NOTE | 2018-11-29 12:29 | NUR ---
PT. IV VANCOMYCIN FINISHED WITH IV DISCONTINUED AND VERBALILZED INDERSTANDING OF DISCHARGE INSTRUCTIONS.
== END 2018-11-29 12:35 | disposition home or self-care (01) ==
LOC: D.OPS 08:32 → D.ER 08:32 → D.MS 08:32 → EDSTATUS 08:45 → D.MS 08:55 → D.OPS 12:35
PROVIDERS: ATTEND Family Medicine
DX: N39.0 Urinary tract infection, site not specified (principal)

== ENCOUNTER 2018-12-11 08:20 | Day surgery (SDC) | payer MEDICARE ==
[~2018-12-11] VITALS: Ht 157.5 cm; Wt 56.2 kg
[2018-12-11 09:11] LABS: HEMATOCRIT 29.9 % (36.0-48.0); HEMOGLOBIN 9.8 g/dL (12-16); MCH 31.5 pg (26.0-34.0); MCHC 32.8 g/dL (31.0-37.0); MCV 96.1 fL (80.0-100.0); MEAN PLATELET VOLUME 9.9 fL (7.4-10.4); RBC 3.11 10x6/uL (4.00-5.40); RDW 12.3 % (11.5-14.5); WBC 7.1 10x3/uL (4.8-10.8)
[2018-12-11 09:24] VITALS: BP 144/52; Ht 157.5 cm; Wt 56.2 kg
--- NOTE | 2018-12-11 12:59 | NUR ---
REC'D FROM . NO FAMILY AT BEDSIDE.
--- NOTE | 2018-12-11 13:30 | NUR ---
FL DIET SERVED TO PATIENT.
--- NOTE | 2018-12-11 13:50 | OP ---
PATIENT NAME: DOMENICO MEJIA I MEDICAL RECORD: [id number] :40 LOCATION:D.OPS ADMISSION DATE: SURGEON: DORCAS ACOSTA MD DATE OF OPERATION: 12/11/2018 SURGEON: Dorcas Acosta MD POWER LINE INSTALLER AND REPAIRER: BHAVANI by Abdullahi Melchor CRNA DIAGNOSIS: Retained left ureteral stent. PROCEDURES: Cystoscopy and left ureteral stent removal. SPECIMEN: Left ureteral stent. FINDINGS: Retained left ureteral stent with no stent on the right side. No bladder tumors. BLOOD LOSS: None. CLINICAL HISTORY: This is a 78-year-old female, who initially presented to the hospital with urinary retention and acute renal failure. She has an atrophic right kidney on imaging. On the left side, she had hydronephrosis. She had a left ureteral stent inserted. She has had an InterStim device implanted by Dr. Kwan for chronic urinary retention. The device was not working. Since then, she had Dr. Kwan revise the device and now she is voiding spontaneously on her own. Latest KUB shows that the left ureteral stent is still in place. It needs to come out. She was given Ancef environmental services attendant to the OR. DESCRIPTION OF PROCEDURE: The patient was given IV sedation. She was placed in lithotomy position and prepped and draped. A 21-Ivorian cystoscope was used for visualization. Only the left ureteral stent was seen. No bladder tumors were seen. Grasping forceps were used on the left ureteral stent was entirely removed. It was sent to pathology for identification. I will have the patient have an ultrasound performed of the left kidney as an outpatient. I will see her in followup in 2 weeks' time. I wanted to verify that the left hydronephrosis is resolved. TRANSINT:[id number] Voice Confirmation ID: [id number] DOCUMENT ID: [id number] DORCAS ACOSTA MD at 1350 CC: [id number] DICTATION DATE: 12/11/18 1303 IRRIGATION LABORER: 12/11/18 1320 REG [facility] [address] [place] [id number]
--- NOTE | 2018-12-11 14:00 | NUR ---
TOLERATED FL DIET. NO URGE TO VOID AT THIS TIME.
--- NOTE | 2018-12-11 14:20 | NUR ---
AMBULATED TO THE BATHROOM AND VOIDED WITHOUT DIFFICULTY.
--- NOTE | 2018-12-11 14:25 | NUR ---
PATIENT CALLED FOR HER TRANSPORTATION HOME.
--- NOTE | 2018-12-11 14:35 | NUR ---
WRITTEN AND VERBAL DC INST. GIVEN TO PATIENT. ALONG WITH F/U FOR ULTRASOUND OF KIDNEY. VERBALIZED UNNDERSTANDING. IV DC'D WITH CATHETER INTACT.
--- NOTE | 2018-12-11 14:40 | NUR ---
DC'D HOME WITH FAMILY VIA PRIVATE VEHICLE. PT DID NOT WANT TO RIDE IN A WC THEREFORE NURSE WALKED WITH PT TO VEHICLE. STABLE AT TIME OF DC.
== END 2018-12-11 14:40 | disposition home or self-care (01) ==
LOC: D.OPS 08:20 → D.PAN 14:30 → D.OPS 14:30
PROVIDERS: Anesthesiology; ATTEND Urology
DX: Z46.6 Encounter for fitting and adjustment of urinary device (principal); Z01.812 Encounter for preprocedural laboratory examination

== ENCOUNTER → 2018-12-17 10:40 | Outpatient (CLI) | payer MEDICARE ==
[2018-12-11 09:24] VITALS: BMI 22.7
== END | disposition home or self-care (01) ==
LOC: D.US 10:40
PROVIDERS: ATTEND Urology
DX: N13.30 Unspecified hydronephrosis (principal)

== ENCOUNTER → 2018-12-24 21:34 | Outpatient (CLI) | payer MEDICARE ==
[2018-12-11 09:24] VITALS: BMI 22.7
== END | disposition home or self-care (01) ==
LOC: D.LABREF 21:34
PROVIDERS: ATTEND Urology
DX: N39.0 Urinary tract infection, site not specified (principal)

== ENCOUNTER → 2019-01-07 19:28 | Outpatient (CLI) | payer MEDICARE ==
[2018-12-11 09:24] VITALS: BMI 22.7
== END | disposition home or self-care (01) ==
LOC: D.LABREF 19:28
PROVIDERS: ATTEND Urology
DX: R31.9 Hematuria, unspecified (principal)

== ENCOUNTER 2019-01-12 07:42 | Inpatient (IN) | payer MEDICARE ==
[~2019-01-12] VITALS: Ht 157.5 cm; Wt 53.2 kg
[2019-01-12 09:35] LABS: CREATININE - SERUM 2.6 mg/dL (0.6-1.3)
--- NOTE | 2019-01-12 16:15 | NUR ---
RECEIVED PATIENT FROM ADMISSIONS, DIRECT ADMIT FROM HOME. ALERT AND ORIENTED. NO C/O PAIN. NO S/S OF ACUTE DISTRESS NOTED. PT DENIES ANY NEEDS. CALL LIGHT IN REACH. WILL CONTINUE TO MONITOR.
[2019-01-12 17:45] LABS: BASOPHILS 0.4 % (0-2); EOSINOPHILS 2.4 % (0-7); HEMATOCRIT 26.1 % (36.0-48.0); HEMOGLOBIN 8.4 g/dL (12-16); IMMATURE GRANULOCYTES 0.1 % (0-5); LYMPHOCYTES 30.9 % (15-50); MCH 30.7 pg (26.0-34.0); MCHC 32.2 g/dL (31.0-37.0); MCV 95.3 fL (80.0-100.0); MEAN PLATELET VOLUME 9.8 fL (7.4-10.4); MONOCYTES 10.5 % (2-11); NEUTROPHILS 55.7 % (40-80); RBC 2.74 10x6/uL (4.00-5.40); RDW 13.7 % (11.5-14.5); WBC 7.5 10x3/uL (4.8-10.8)
[2019-01-12 17:48] LABS: PLATELET COUNT 235 10x3/uL (130-400)
[2019-01-12 18:05] LABS: ALBUMIN 2.9 g/dL (3.4-5.0); ANION GAP 11.3 mmol/L (8-16); BILIRUBIN - TOTAL 0.33 mg/dL (0.2-1.3); CALCIUM 8.8 mg/dL (8.5-10.1); CARBON DIOXIDE 25.5 mmol/L (21.0-32.0); CREATININE - SERUM 2.5 mg/dL (0.6-1.3); POTASSIUM - SERUM 4.8 mmol/L (3.5-5.1); PROTEIN - SERUM 6.2 g/dL (6.4-8.2)
--- NOTE | 2019-01-12 19:02 | NUR ---
ALERT AND ORIENTED. NO C/O PAIN. NO S/S OF ACUTE DISTRESS NOTED. PT DENIES ANY NEEDS AT THIS TIME. CALL LIGHT IN REACH. WILL CONTINUE TO MONITOR.
[2019-01-12 20:00] VITALS: BP 109/46
--- NOTE | 2019-01-12 22:10 | NUR ---
PT LAYING IN BED, A/O. OBTAINED CONSENTS FOR SURGERY TOMORROW. VOICES NO CONFUSION OR CONCERN. CONTINUE WITH PLAN OF CARE.
[2019-01-13] VITALS: BP 105/50
[2019-01-13 06:56] LABS: BASOPHILS 0.5 % (0-2); EOSINOPHILS 2.9 % (0-7); HEMATOCRIT 26.9 % (36.0-48.0); HEMOGLOBIN 8.5 g/dL (12-16); IMMATURE GRANULOCYTES 0.2 % (0-5); LYMPHOCYTES 41.3 % (15-50); MCH 30.4 pg (26.0-34.0); MCHC 31.6 g/dL (31.0-37.0); MCV 96.1 fL (80.0-100.0); MEAN PLATELET VOLUME 10.1 fL (7.4-10.4); MONOCYTES 11.4 % (2-11); NEUTROPHILS 43.7 % (40-80); PLATELET COUNT 257 10x3/uL (130-400); RDW 13.7 % (11.5-14.5); WBC 5.8 10x3/uL (4.8-10.8)
[2019-01-13 08:05] LABS: ANION GAP 11.7 mmol/L (8-16); CALCIUM 8.5 mg/dL (8.5-10.1); CARBON DIOXIDE 24.5 mmol/L (21.0-32.0); CREATININE - SERUM 2.5 mg/dL (0.6-1.3); MAGNESIUM - SERUM 2.3 mg/dL (1.8-2.4); PHOSPHOROUS 4.1 mg/dL (2.5-4.9); POTASSIUM - SERUM 5.2 mmol/L (3.5-5.1)
[2019-01-13 09:33] VITALS: BP 124/57
[2019-01-13 09:57] VITALS: BMI 21.4
[2019-01-13 11:29] VITALS: BP 112/46
[2019-01-13 14:22] VITALS: BP 116/50
--- NOTE | 2019-01-13 14:57 | NUR ---
PT RESTING IN BED. NO SIGNS OF DISTRESS.IV TO RIGHT FORARM PATENT NO REDNESS OR TENDERNESS. DENIES ANY FUTHER NEED AT THIS TIME. CALL LIGHT IN REACH. BED LOW POSITION. HAS RICKY NO KINKS AND PATENT.
[2019-01-13 14:58] VITALS: Ht 157.5 cm; Wt 53.2 kg
--- NOTE | 2019-01-13 18:45 | NUR ---
I have reviewed this patient and I concur with the Shift Assessment completed by the Licensed Practical Nurse today this shift.
--- NOTE | 2019-01-13 19:30 | NUR ---
A/O X4 AND SHOWS NO SIGNS OF DISTRESS. GARCÍA IN PLACE, WITH YELLOW/ CLOUDY URINE. IV TO THE RT FOREARM, SL AND DRESSING INTACT. CONTINUE WITH PLAN OF CARE.
[2019-01-13 20:00] VITALS: BP 109/42
--- NOTE | 2019-01-13 20:46 | OP ---
PATIENT NAME: DOMENICO MEJIA I MEDICAL RECORD: [id number] :40 LOCATION:D.MS [id number] ADMISSION DATE:01/12/19 SURGEON: GRAHAM ACOSTA MD DATE OF OPERATION: 01/13/2019 SURGEON: Graham Acosta MD ANESTHESIA: General anesthesia by Kit Parrish MD. DIAGNOSES: Bilateral hydroureteronephrosis, bilateral renal cortical atrophy, renal failure, urinary retention. PROCEDURE: Cystoscopy, bilateral retrograde pyelogram. Right ureteral stent insertion 6-Ugandan x 22 cm without string attached. Left ureteral stent insertion 6-Ugandan x 26 cm without string attached. FINDINGS: Trabeculated bladder with no bladder tumors. Golf hole bilateral ureteral orifices, which are refluxing. On retrograde pyelogram, there is bilateral hydroureteronephrosis with the left side being significantly more hydronephrotic than the right. BLOOD LOSS: None. CLINICAL HISTORY: This is a 78-year-old female, who has a history of bilateral hydroureteronephrosis. The right renal cortex is almost minimal in its extent. I had placed a left ureteral stent before, but we had to remove it when she developed a urinary tract infection. Her urinary tract infection has now cleared up as her latest urine culture shows no growth. She came back to the hospital with increasing renal failure and bilateral hydroureteronephrosis. She also has a large ovarian cyst noted. Today, I am going to insert bilateral ureteral stents and also insert a Larson catheter. She seems to have urinary retention. She had seen Dr. Kwan in the past for the urinary retention. She placed an InterStim device to try to get her to void spontaneously. She is voiding somewhat, but I am not certain that she is actually fully emptying her bladder. Therefore, the plan is to insert bilateral ureteral stents and place a Larson catheter. I will then recheck her ultrasound tomorrow to see if the hydronephrosis has resolved and we will also check on the blood work to see if her renal function improved. She was given Ancef 1 gram IV radiophone operator to the OR. DESCRIPTION OF PROCEDURE: The patient was given induction of general anesthesia in supine position. She was then placed in the lithotomy position and prepped and draped. A 21-Ugandan cystoscope was used. She has a large golf hole type ureteral orifices, which are refluxing. I initially inserted an open-ended ureteral catheter into the right ureteral orifice. A retrograde pyelogram was performed, which confirmed bilateral hydroureteronephrosis. There is tortuous deviation of the ureter on the right side. We inserted a Sensor wire through the lumen of the ureteral catheter up to the renal pelvis. Once the wire was in the renal pelvis, we then removed the ureteral catheter, leaving the wire in place. Over the wire, we inserted a 6-Ugandan x 22 cm ureteral stent without string attached. Once the stent was in correct position, the wire was withdrawn entirely. The distal end of the stent was pushed into the bladder using a pusher. A similar procedure was followed on the left side. The ureter is significantly longer on the left side and we used a 26 cm stent on the left side. The ureter was also hydronephrotic on the left side. With the [address], I then inserted a 16-Ugandan Larson catheter into the bladder. The OPERATIVE REPORT [id number] DOMENICO MEJIA I balloon was inflated with 10 cc of sterile water. This will be put to bag drainage. The patient was awakened and brought to the recovery room. TRANSINT:[id number] Voice Confirmation ID: [id number] DOCUMENT ID: [id number] GRAHAM ACOSTA MD at 2046 CC: [id number] DICTATION DATE: 01/13/19 1343 SALON/SPA MANAGER: 01/13/19 1549 ADM IN [facility] [address] [place] [address]
[2019-01-13 23:48] LABS: APPEARANCE CLOUDY (CLEAR); BILIRUBIN NEGATIVE (NEGATIVE); COLOR YELLOW (YELLOW); GLUCOSE NEGATIVE (NEGATIVE); KETONE NEGATIVE (NEGATIVE); NITRITE NEGATIVE (NEGATIVE); PROTEIN 3+ mg/dL (NEGATIVE); UROBILINOGEN NORMAL (NORMAL)
[2019-01-13 23:49] LABS: BACTERIA MODERATE /hpf (NONE SEEN); EPITHELIAL CELLS 0-5 /hpf (0-5)
[2019-01-14] VITALS (9 sets, daily range): BP systolic 99–1255; BP diastolic 44–68
--- NOTE | 2019-01-14 02:00 | NUR ---
FIRMNESS PALPATED IN LOWER PELVIS. REPOSITIONED PT ON RT SIDE TO HELP DRAIN GARCÍA. CLOUDY YELLOW URINE NOTED IN BAG. WILLL CONTINUE TO M[place].
--- NOTE | 2019-01-14 04:00 | NUR ---
GOT UP OUT OF BED AND BROKE IV LINE. DISORIENTED TO PLACE, TIME, AND SITUATION. PLACED BACK INTO BED AND APPLIED O2 @2L. REOIENTED PT. GARCÍA STILL DRAINING. HARD MASS PALPATED AT IN THE LOWER ABDOMEN. WILL CONTINUE TO MONITOR.
--- NOTE | 2019-01-14 04:30 | NUR ---
BLADDER SCAN REVELED 10ML. GARCÍA DRAINING CLOUDY YELLOW URINE. WILL CONTINUE TO MONITOR
[2019-01-14 04:42] LABS: BASOPHILS 0.1 % (0-2); EOSINOPHILS 1.7 % (0-7); HEMATOCRIT 24.6 % (36.0-48.0); HEMOGLOBIN 7.9 g/dL (12-16); LYMPHOCYTES 29.2 % (15-50); MCH 30.6 pg (26.0-34.0); MCHC 32.1 g/dL (31.0-37.0); MCV 95.3 fL (80.0-100.0); MEAN PLATELET VOLUME 9.8 fL (7.4-10.4); MONOCYTES 11.8 % (2-11); NEUTROPHILS 57.2 % (40-80); PLATELET COUNT 245 10x3/uL (130-400); RBC 2.58 10x6/uL (4.00-5.40); RDW 13.8 % (11.5-14.5)
[2019-01-14 04:56] LABS: ANION GAP 16.1 mmol/L (8-16); CALCIUM 8.1 mg/dL (8.5-10.1); CARBON DIOXIDE 22.3 mmol/L (21.0-32.0); CREATININE - SERUM 2.5 mg/dL (0.6-1.3); MAGNESIUM - SERUM 1.9 mg/dL (1.8-2.4); PHOSPHOROUS 3.2 mg/dL (2.5-4.9)
[2019-01-14 05:01] LABS: POTASSIUM - SERUM 4.4 mmol/L (3.5-5.1)
[2019-01-14 05:05] LABS: WBC 7.6 10x3/uL (4.8-10.8)
--- NOTE | 2019-01-14 07:15 | NUR ---
FIRMNESS IS NO LONGER NOTED IN LOWER PELVIS. PT STILL IS FRUSTRATED AND STILL ATTEMPTS TO GET OUT OF BED. WILL CONTINUE TO MONITOR
--- NOTE | 2019-01-14 07:31 | NUR ---
RECIEVED REPORT.PATIENT IS RESTING IN BED AT THIS TIME. SHE BECAME CONFUSED LAST NIGHT, AND SHE IS FRUSTRATED AND KEEPS ATTEMPTING TO GET UP. SHE SEEMS UNAWARE THAT HSE HAS AN IV, OR A GARCÍA.
--- NOTE | 2019-01-14 08:44 | NUR ---
patient is getting a kidney scan at this time.
--- NOTE | 2019-01-14 09:48 | NUR ---
PATIENT IS ALERT AND AWAKE. SHE IS ORIENTED TO PERSON AND PARTLY SITUATION. SHE IS CONFUSED ABOUT WHERE SHE IS AT THIS TIME. URINE SAMPLE OBTAINED. KIDNEY SCAN COMPLETED.
[2019-01-14 13:55] LABS: APPEARANCE CLOUDY (CLEAR); BACTERIA FEW /hpf (NONE SEEN); BILIRUBIN NEGATIVE (NEGATIVE); COLOR YELLOW (YELLOW); GLUCOSE NEGATIVE (NEGATIVE); KETONE NEGATIVE (NEGATIVE); NITRITE NEGATIVE (NEGATIVE); PROTEIN 2+ mg/dL (NEGATIVE); RED CELLS - URINE 25-50 /hpf (0-5); SPECIFIC GRAVITY 1.005 (1.005-1.020); UROBILINOGEN NORMAL (NORMAL)
[2019-01-14 13:56] LABS: EPITHELIAL CELLS RARE /hpf (0-5)
--- NOTE | 2019-01-14 15:49 | NUR ---
PATIENT IS CONFUSED AND SHE HAS BEEN REPEATEDLY SETTING OFF THE BED ALARM. SHE WANTS TO GO HOME, HOWEVER WHEN ASKED IF SHE KNOWS WHERE SHE IS SHE REPLIES,"YES, WHERE I AM SUPPOSED TO BE, AT [facility] GIVEN MEDICINE ORDERED TO HELP HER RELAX UNTIL THE DR ROUNDS OR SHE IS DISCHARGED.
[2019-01-14 16:35] LABS: HEMATOCRIT 26.7 % (36.0-48.0); HEMOGLOBIN 8.6 g/dL (12-16)
--- NOTE | 2019-01-14 17:21 | NUR ---
CALLED SON SHEILA TO COME SIT WITH THE PATIENT. SHE HAS BEEN DRESSED AND READY TO LEAVE. SHE HAS HER SUITCASE AND SHOES ON.
--- NOTE | 2019-01-14 20:30 | NUR ---
PATIENT UP IN BED. DISORIENTED TO SITUATION. PULLING AT IV SITE. ATTEMPTED TO REORIENT WITHOUT SUCCESS.SON AT BEDSIDE ATTEMPTING TO REORIENTATE PATIENT.CL IN REACH.
--- NOTE | 2019-01-14 22:10 | NUR ---
PATIENT CONTINUES TO BE AGITATED AND ANXIOUS. CALL PLACED TO PLANT CLERK WITH ORDERS RECEIVED. HALDOL 0.5MG GIVEN IM TO RIGHT GLUETUS PER ORDERS.SON REMAINS AT BEDSIDE
--- NOTE | 2019-01-15 00:19 | NUR ---
PT IS SLEEPING. FAMILY HAS LEFT TO GO HOME. DOOR OPEN TO MONITOR
[2019-01-15 06:53] LABS: ANION GAP 12.9 mmol/L (8-16); CALCIUM 8.1 mg/dL (8.5-10.1); CARBON DIOXIDE 24.1 mmol/L (21.0-32.0); CREATININE - SERUM 2.7 mg/dL (0.6-1.3); MAGNESIUM - SERUM 1.9 mg/dL (1.8-2.4)
[2019-01-15 06:54] LABS: PHOSPHOROUS 4.2 mg/dL (2.5-4.9)
[2019-01-15 06:57] LABS: BASOPHILS 0.3 % (0-2); EOSINOPHILS 2.5 % (0-7); HEMATOCRIT 23.4 % (36.0-48.0); IMMATURE GRANULOCYTES 0.2 % (0-5); LYMPHOCYTES 32.4 % (15-50); MCH 30.5 pg (26.0-34.0); MCHC 32.1 g/dL (31.0-37.0); MCV 95.1 fL (80.0-100.0); MEAN PLATELET VOLUME 10.1 fL (7.4-10.4); MONOCYTES 10.3 % (2-11); NEUTROPHILS 54.3 % (40-80); PLATELET COUNT 223 10x3/uL (130-400); RBC 2.46 10x6/uL (4.00-5.40); WBC 6.4 10x3/uL (4.8-10.8)
[2019-01-15 07:09] LABS: HEMOGLOBIN 7.5 g/dL (12-16)
--- NOTE | 2019-01-15 08:03 | NUR ---
PT RESTING IN BED NO SIGNS OF DISTRESS. IV TO LEFT FORARM PATENT NO REDNESS OR TENDERNESS. HAS GARCÍA NO KINKS. DENIES ANY FURTHER NEED AT THIS TIME. CALL LIGHT IN REACH. BED LOW POSITION. NO FAMILY AT BEDSIDE AT THIS TIME.
[2019-01-15 09:15] VITALS: BP 126/43
--- NOTE | 2019-01-15 12:49 | MORECARE ---
CASE MANAGEMENT DISCHARGE SUMMARY PATIENT: DOMENICO MEJIA I UNIT: [id number] ADM DATE: 01/12/19 AGE: 78 : 40 SEX: F ROOM/BED: D.2225 AUTHOR: JAHAIRA ESTRADA PHYSICIAN: REFERRING PHYSICIAN: BETH CONNER MD DATE OF SERVICE: 01/15/19 Discharge Plan Patient Name: DOMENICO MEJIA Facility: [facility]:[place] : 1940 Planned Disposition: Home or Self Care Anticipated Discharge Date: Discharge Date: Expected LOS: Initial Reviewer: [email or web address] Initial Review Date: 01/15/2019 Generated: 01/15/19 1:48 pm Comments DCP- Discharge Planning Updated by [email or web address]: Shanti Thornton on 01/15/19 11:[address] Patient Name: DOMENICO MEJIA Admission Status: Elective Accout number: [id number] Admission Date: 01-12-2019 : 1940 Admission Diagnosis:ACUTE KIDNEY FAILURE, UNSPECIFIED Attending: BETH CONNER Current LOS: 3 Anticipated DC Date: Planned Disposition: Home or Self Care Primary Insurance: [facility] MEDICARE SOLUTIONS Discharge Planning Comments: CM MET WITH PATIENT AND SHE IS PLANNING TO GO HOME WITH FAMILY AT TIME OF DC. [facility] HAS HOME 02 AND NEBS THROUGH [facility] [place]. DENIES ANY OTHER NEEDS OR SERVICES. CM TO FOLLOW AND ASSIST. Road Equipment Operator: Shanti Thornton DCPIA - Discharge Planning Initial Assessment Updated by [email or web address]: Shanti Thornton on 01/15/19 12:42 pm * Is the patient Alert and Oriented? Yes * PCP UBALDO * Pharmacy [facility] [address] * Preadmission Environment Home with Family * ADLs Independent * Other Equipment 02, [facility] * List name and contact numbers for known caregivers / representatives who currently or will assist patient after discharge: CARMELA SOSA, * Additional services required to return to the preadmission environment? No * Can the patient safely return to the preadmission environment? Yes * Has this patient been hospitalized within the prior 30 days at any hospital? No Patient Name: DOMENICO MEJIA Page [phone] at 1249 All edits/amendments must be made on the electronic document DICTATION DATE: 01/15/191247 CHILD'S NURSE: AKIKO 01/15/191247 RPT#: [id number] DC DATE: STATUS: ADM IN [facility] [address] [place] [address] END OF REPORT
--- NOTE | 2019-01-15 13:06 | NUR ---
Nutrition follow-up: Diet: Regular PO intake ~60% average of last 3 meals Labs reviewed Wt: 117# Pt has been confused per nursing RDN following.
[2019-01-15 13:10] VITALS: BP 129/49
[2019-01-15 13:39] LABS: % SATURATION 27 % (15-55); IRON 36 ug/dl (35-150); TOTAL IRON BIND CAPACITY 129 ug/dl (260-445); UNSAT IRON BIND CAPACITY 93 ug/dl (150-375)
[2019-01-15 18:10] VITALS: BP 108/71
--- NOTE | 2019-01-15 19:15 | NUR ---
PT ALERT AND ORIENTED WITH HOB ELEVATED. ONE UNIT OF PRBC INFUSING TO PATIENTS RIGHT FORE ARM. DENIES PAIN OR DISCOMFORT AT THIS TIME. PATIENT HAS GARCÍA CATHETER THAT HAS YELLOW URINE. WING ALARM IN PLACE AND ACTIVE AT THIS TIME. ROOM AIR. ACTIVE BOWEL SOUNDS. REPORTS LAST BM "THIS MORNING". CALL LIGHT IN REACH OF PATIENT. REFUSES YELLOW GOWN AT THIS TIME. WISHES TO BE IN "NORMAL CLOTHES". DOOR REMAINS OPEN FOR MONITORING. CPOC.
[2019-01-15 20:42] VITALS: BP 125/68
--- NOTE | 2019-01-15 23:00 | NUR ---
WING ALARM SOUNDING. PATIENT ON EDGE OF BED. CONFUSED TO SURROUNDINGS, TIME, AND SITUATION. PATIENT STATES "I AM LOOKING FOR MY DAUGHTER SHE IS SUPPOSED TO BE HERE." ATTEMPTED TO REORIENT PATIENT BUT UNSUCCESSFUL. PATIENT CONTINUED TO MUMBLE ABOUT DAUGHTER AND [place] BUT WAS COMPLIANT TO GET BACK IN BED. WING ALARM IS ACTIVE. DOOR OPEN. CPOC.
[2019-01-16 00:39] VITALS: BP 123/64
--- NOTE | 2019-01-16 02:09 | NUR ---
PATIENT RESTING WITH NO SIGNS OF DISTRESS AT THIS TIME. CALL LIGHT IN REACH. DOOR OPEN FOR MONITORING. CPOC.
--- NOTE | 2019-01-16 02:53 | NUR ---
I have reviewed this patient and I concur with the Shift Assessment completed by the Licensed Practical Nurse today this shift.
[2019-01-16 04:40] VITALS: BP 134/60
[2019-01-16 05:09] LABS: BASOPHILS 0.1 % (0-2); IMMATURE GRANULOCYTES 0.1 % (0-5); LYMPHOCYTES 27.9 % (15-50); MCHC 32.6 g/dL (31.0-37.0); MEAN PLATELET VOLUME 10.1 fL (7.4-10.4); MONOCYTES 9.3 % (2-11); NEUTROPHILS 58.6 % (40-80); PLATELET COUNT 245 10x3/uL (130-400); RDW 15.5 % (11.5-14.5)
[2019-01-16 05:13] LABS: HEMATOCRIT 28.5 % (36.0-48.0); HEMOGLOBIN 9.3 g/dL (12-16); MCV 91.9 fL (80.0-100.0)
[2019-01-16 05:38] LABS: ANION GAP 12.1 mmol/L (8-16); CREATININE - SERUM 2.4 mg/dL (0.6-1.3); MAGNESIUM - SERUM 1.8 mg/dL (1.8-2.4); PHOSPHOROUS 4.4 mg/dL (2.5-4.9); POTASSIUM - SERUM 4.1 mmol/L (3.5-5.1)
[2019-01-16 08:14] VITALS: BP 126/66
--- NOTE | 2019-01-16 13:00 | NUR ---
PATIENT RECIEVED DC INSTRUCTIONS. VERBALIZED UNDERSTANDING. NO QUESTIONS AT THIS TIME. SON AT SIDE. EXPLAINED HOW TO PLACE LEG BAG TO PATIENT AND SON. NO QUESTIONS AT THIS TIME. IV REMOVED WITH CATH TIP INTACT. EXPLAINED TO KEEP AREA AROUND GARCÍA CATHETER CLEAN AND TO DO IT EVERY DAY AND NEEDED. VERBALIZED UNDERSTANDING. NO QUESTIONS AT THIS TIME. AWAITING WC FOR DC. CALL LIGHT WITHIN REACH.
--- NOTE | 2019-01-16 15:42 | MORECARE ---
CASE MANAGEMENT DISCHARGE SUMMARY PATIENT: DOMENICO MEJIA I UNIT: [id number] ADM DATE: 01/12/19 AGE: 78 : 40 SEX: F ROOM/BED: D.2223 AUTHOR: JAHAIRA ESTRADA PHYSICIAN: REFERRING PHYSICIAN: BETH CONNER MD DATE OF SERVICE: 01/16/19 Discharge Plan Patient Name: DOMENICO MEJIA Facility: [facility]:[place] : 1940 Planned Disposition: Home or Self Care Anticipated Discharge Date: Discharge Date: 01/16/2019 Expected LOS: Initial Reviewer: [email or web address] Initial Review Date: 01/15/2019 Generated: 01/16/19 4:42 pm DCP- Discharge Planning Updated by [email or web address]: Shanti Thornton on 01/15/19 11:[address] Patient Name: DOMENICO MEJIA Admission Status: Elective Accout number: [id number] Admission Date: 01-12-2019 : 1940 Admission Diagnosis:ACUTE KIDNEY FAILURE, UNSPECIFIED Attending: BETH CONNER Current LOS: 3 Anticipated DC Date: Planned Disposition: Home or Self Care Primary Insurance: [facility] MEDICARE SOLUTIONS Discharge Planning Comments: CM MET WITH PATIENT AND SHE IS PLANNING TO GO HOME WITH FAMILY AT TIME OF DC. [facility] HAS HOME 02 AND NEBS THROUGH [facility]. DENIES ANY OTHER NEEDS OR SERVICES. CM TO FOLLOW AND ASSIST. Dust Collector Treater: Shanti Thornton DCPIA - Discharge Planning Initial Assessment Updated by [email or web address]: Shanti Thornton on 01/15/19 12:42 pm * Is the patient Alert and Oriented? Yes * PCP UBALDO * Pharmacy [facility] [address] * Preadmission Environment Home with Family * ADLs Independent * Other Equipment 02, [employer] * List name and contact numbers for known caregivers / representatives who currently or will assist patient after discharge: CARMELA SOSA, * Additional services required to return to the preadmission environment? No * Can the patient safely return to the preadmission environment? Yes * Has this patient been hospitalized within the prior 30 days at any hospital? No Coverage Notice Reviewer: [email or web address] - Shanti Thornton Notice Issued Date-Time: 01/16/2019 8:00 Notice Type: IM Discharge Notice Notice Delivered To: Patient Relationship to Patient: Self Software Test Specialist Name: Delivery Method: HAND - Hand Delivered Lisa Days: Prior Verbal Notification: Recipient Understood Notice: Yes Recipient Signature: Yes Med Rec Note Co-signed by Attending: Coverage Notice Comment: Last DP export: 01/15/19 11:49 a Patient Name: DMOENICO MEJIA Page [phone] at 1542 All edits/amendments must be made on the electronic document DICTATION DATE: 01/16/191541 PHYSICIAN/OPHTHALMOLOGIST: AKIKO 01/16/19 1542 RPT#: [id number] DC DATE:01/16/19 STATUS: DIS IN [facility] [address] [place] [address] END OF REPORT
== END 2019-01-16 13:25 | disposition home or self-care (01) | DRG 659 ==
LOC: D.CT 07:42 → D.MS 15:52
PROVIDERS: Internal Medicine Nephrology; Obstetrics & Gynecology Gynecology; Urology; ADMIT Family Medicine; ATTEND Family Medicine
PROC: 0T788DZ Dilation of Bilateral Ureters with Intraluminal Device, Via Natural or Artificial Opening Endoscopic (ICD-10-PCS; principal; 2019-01-13 11:15)
PROC: BT14ZZZ Fluoroscopy of Kidneys, Ureters and Bladder (ICD-10-PCS; 2019-01-13 11:15)
DX: N17.9 Acute kidney failure, unspecified (principal); G92 Toxic encephalopathy; N39.0 Urinary tract infection, site not specified; N18.4 Chronic kidney disease, stage 4 (severe); N13.30 Unspecified hydronephrosis; N26.1 Atrophy of kidney (terminal); R33.9 Retention of urine, unspecified; N83.202 Unspecified ovarian cyst, left side; D64.9 Anemia, unspecified; E03.9 Hypothyroidism, unspecified; J43.9 Emphysema, unspecified; D63.1 Anemia in chronic kidney disease; M54.9 Dorsalgia, unspecified; F41.9 Anxiety disorder, unspecified; E87.6 Hypokalemia

== ENCOUNTER → 2019-02-04 17:16 | Outpatient (CLI) | payer MEDICARE ==
[2019-01-13 14:58] VITALS: BMI 21.4
== END | disposition home or self-care (01) ==
LOC: D.LABREF 17:16
PROVIDERS: ATTEND Urology
DX: N39.0 Urinary tract infection, site not specified (principal); N13.30 Unspecified hydronephrosis

== ENCOUNTER → 2019-02-12 08:01 | Outpatient (CLI) | payer MEDICARE ==
[2019-01-13 14:58] VITALS: BMI 21.4
== END | disposition home or self-care (01) ==
LOC: D.US 08:01
PROVIDERS: ATTEND Urology
DX: N13.30 Unspecified hydronephrosis (principal)

== ENCOUNTER → 2019-02-23 18:20 | Outpatient (CLI) | payer MEDICARE ==
[2019-01-13 14:58] VITALS: BMI 21.4
== END | disposition home or self-care (01) ==
LOC: D.LABREF 18:20
PROVIDERS: ATTEND Urology
DX: D72.819 Decreased white blood cell count, unspecified (principal)

== ENCOUNTER 2019-03-03 05:37 | Day surgery (SDC) | payer MEDICARE ==
[~2019-03-03] VITALS: Ht 157.5 cm; Wt 50.5 kg
[2019-03-03 06:24] LABS: HEMATOCRIT 27.9 % (36.0-48.0); HEMOGLOBIN 9.1 g/dL (12-16); MCH 29.6 pg (26.0-34.0); MCHC 32.6 g/dL (31.0-37.0); MCV 90.9 fL (80.0-100.0); MEAN PLATELET VOLUME 10.9 fL (7.4-10.4); RBC 3.07 10x6/uL (4.00-5.40); RDW 14.1 % (11.5-14.5); WBC 4.2 10x3/uL (4.8-10.8)
[2019-03-03 06:25] VITALS: BP 134/41; Ht 157.5 cm; Wt 50.5 kg
[2019-03-03 06:30] LABS: ANION GAP 19.1 mmol/L (8-16); CALCIUM 8.5 mg/dL (8.5-10.1); CARBON DIOXIDE 19.8 mmol/L (21.0-32.0); CREATININE - SERUM 3.1 mg/dL (0.6-1.3); POTASSIUM - SERUM 4.9 mmol/L (3.5-5.1)
--- NOTE | 2019-03-03 14:44 | OP ---
PATIENT NAME: DOMENICO MEJIA I MEDICAL RECORD: [id number] :40 LOCATION:D.OPS ADMISSION DATE: SURGEON: DORCAS ACOSTA MD DATE OF OPERATION: 03/03/2019 SURGEON: Dorcas Acosta MD ANESTHESIA: TIVA by Erik Mukherjee CRNA. DIAGNOSES: Infected ureteral stents, retained ureteral stents. PROCEDURES: Cystoscopy and removal of bilateral ureteral stents. FINDINGS: Bilateral ureteral stents. SPECIMENS: Ureteral stents times 2. BLOOD LOSS: None. CLINICAL HISTORY: This is a 79-year-old female, who has UTI with Acinetobacter plus VRE and Nilda albicans. She is currently being treated with Cipro plus linezolid plus Diflucan. She has chronic bilateral hydronephrosis due to urinary retention. She is currently performing self-intermittent catheterization. For the hydronephrosis, she did have bilateral ureteral stents placed earlier. These stents are now contaminated, they need to be removed. Also, once she started the catheterization routine, her followup ultrasound showed resolution of the hydronephrosis bilaterally. Today, she comes to have the stents removed. She is not allergic to any medications. She was given Levaquin IV division plant engineer to the OR. DESCRIPTION OF PROCEDURE: The patient was given IV sedation. She was placed into lithotomy position and prepped and draped. A 21-Urdu cystoscope with 30-degree lens was used for visualization. Grasping forceps were used also. Each stent was seen and removed entirely in turn. The bladder was then emptied through the cystoscope sheath and then the scope was removed. A 16-Urdu Larson catheter was put back into the bladder. I will see her in followup at the end of this week or the following week in order to remove the catheter. She can then resume performing self-intermittent catheterization on a q.i.d. basis. TRANSINT:[id number] Voice Confirmation ID: [id number] DOCUMENT ID: [id number] DORCAS ACOSTA MD at 1444 CC: [id number] DICTATION DATE: 03/03/19 0849 BOIL OFF MACHINE OPERATOR CLOTH: 03/03/19 1143 [facility] 03/03/19 [place] [address]
== END 2019-03-03 10:25 | disposition home or self-care (01) ==
LOC: D.OPS 05:37 → D.PAN 13:45 → D.OPS 13:45
PROVIDERS: Anesthesiology; ATTEND Urology
DX: T83.592A Infection and inflammatory reaction due to indwelling ureteral stent, initial encounter (principal); Y83.9 Surgical procedure, unspecified as the cause of abnormal reaction of the patient, or of later complication, without mention of misadventure at the time of the procedure

== ENCOUNTER → 2019-03-06 16:09 | Outpatient (CLI) | payer MEDICARE ==
[2019-03-03 06:25] VITALS: BMI 20.3
== END | disposition home or self-care (01) ==
LOC: D.LABREF 16:09
PROVIDERS: ATTEND Urology
DX: Z00.00 Encounter for general adult medical examination without abnormal findings (principal)

== ENCOUNTER → 2019-04-13 07:44 | Outpatient (CLI) | payer MEDICARE ==
[2019-03-03 06:25] VITALS: BMI 20.3
== END | disposition home or self-care (01) ==
LOC: D.RT 07:44
PROVIDERS: ATTEND Internal Medicine Pulmonary Disease
DX: J44.9 Chronic obstructive pulmonary disease, unspecified (principal)

== ENCOUNTER 2019-12-26 16:07 | Inpatient (IN) | payer OTHER ==
[~2019-12-26] VITALS: Ht 157.5 cm; Wt 51.5 kg
--- NOTE | ~2019-12-26 | EC ---
PATIENT:DOMENICO MEJIA I DATE OF SERVICE: 12/26/19 SEX: F MEDICAL RECORD: [id number] DATE OF : [birth year] LOCATION:D.MS Cochran222 AGE OF PATIENT: 79 ADMISSION DATE: 12/26/19 REFERRING PHYSICIAN: INTERPRETING PHYSICIAN: CAMILO ORTIZ MD ECHOCARDIOGRAM REPORT ECHO CHARGES 4 ECHO COMPLETE Date: 12/27/19 CLINICAL DIAGNOSIS: SYNCOPE,DIZZINESS HX OF HTN/ HLPD ECHOCARDIOGRAPHIC MEASUREMENTS (adult normal given) AC root (d.<3.7cm) 2.6 cm LV Septum d (<1.2 cm> 1.2 cm Valve Excursion 1.2 cm LV Septum (systole) 1.3 cm Left Atria (s.<4.0cm> 2.9 cm LVPW d(<1.2cm) 1.1 cm RV (d.<2.3cm) 3.7 cm LVPW (sytole) 1.3 cm LV diastole(<5.6CM) 4.1 cm MV E-F(>70mm/sec) cm LV systole 3.1 cm LVOT Diameter 1.7 cm MV exc.(>10mm) 1.0 cm Est.ejection fraction (50-75%) % DOPPLER: LVIT cm/sec A 105.0cm/sec E 73.0 cm/sec LA cm/sec RVSP 23 mmHg LVOT 126 cm/sec AOP1/2T m/s Asc. Ao 157 cm/sec RVOT 118 cm/sec RA cm/sec PA 199 cm/sec AV Gradient Peak 9.84 mmHg AV Mean 5.79 mmHg AV Area 1.7 cm MV Gradient Peak 4.23 mmHg MV Mean 1.26 mmHg MV Area cm COMMENTS: Scourer: 2 SUSAN CHAVEZ Manager Social Responsibility: 4 Dr. Ortiz TAPE# PACS Pericardial Effusion N DATE OF SERVICE: PROCEDURE: Transthoracic echocardiogram. FINDINGS: The left ventricle has mild left ventricular hypertrophy. Inflow characteristics consistent with diastolic dysfunction. Left atrium is normal size, shape, structure, and function. Aortic valve appears to be normal. ECHOCARDIOGRAM REPORT [id number] DOMENICO MEJIA I Mitral valve appears to be normal in structure and function. Tricuspid valve has trace tricuspid regurgitation. RVSP is normal. Right ventricle is mild to moderately dilated with normal function. The right atrium is normal size, shape, structure, and function. There is no effusion. Pulmonic valve appears to be grossly normal. TRANSINT:[id number] Voice Confirmation ID: [id number] DOCUMENT ID: [id number] CAMILO ORTIZ MD CC: [id number] DICTATION DATE: 12/27/19 162 CAFE ASSOCIATE: 12/27/19 2356 ADM IN [facility] [address] [place] [address]
[2019-12-26 16:59] LABS: BASOPHILS 0.4 % (0-2); EOSINOPHILS 0.7 % (0-7); HEMATOCRIT 33.4 % (36.0-48.0); HEMOGLOBIN 10.7 g/dL (12-16); IMMATURE GRANULOCYTES 0.4 % (0-5); LYMPHOCYTES 20.6 % (15-50); MCH 31.8 pg (26.0-34.0); MCV 99.1 fL (80.0-100.0); MEAN PLATELET VOLUME 9.8 fL (7.4-10.4); MONOCYTES 14.2 % (2-11); NEUTROPHILS 63.7 % (40-80); RBC 3.37 10x6/uL (4.00-5.40); RDW 12.3 % (11.5-14.5); WBC 8.3 10x3/uL (4.8-10.8)
[2019-12-26 17:00] LABS: PLATELET COUNT 278 10x3/uL (130-400)
[2019-12-26 17:10] LABS: APTT 24.6 SECONDS (22.8-39.4); INR 1.01 (0.85-1.17); PROTIME 13.2 SECONDS (11.6-15.0)
[2019-12-26 17:14] LABS: CALC OSMOLALITY 286 mosm/kg (275-300); CALCIUM 9.7 mg/dL (8.5-10.1); CARBON DIOXIDE 24.6 mmol/L (21.0-32.0); CHLORIDE - SERUM 100 mmol/L (98-107); CREATININE - SERUM 3.9 mg/dL (0.6-1.3); GLUCOSE 123 mg/dL (74-106); POTASSIUM - SERUM 5.7 mmol/L (3.5-5.1); SODIUM 133 mmol/L (136-145); UREA NITROGEN 68 mg/dL (7-18); eGFR NON AFRICAN AMERICAN 12 mL/min (90-120)
[2019-12-26 17:22] LABS: ALBUMIN 3.2 g/dL (3.4-5.0); ALKALINE PHOSPHATASE 52 U/L (30-120); ALT (SGPT) 25 U/L (10-68); BILIRUBIN - TOTAL 0.39 mg/dL (0.2-1.3); CREATINE KINASE 36 UL (21-215)
[2019-12-26 17:23] LABS: TROPONIN-I < 0.017 ng/mL (0.000-0.060)
--- NOTE | 2019-12-26 17:30 | NUR ---
ICE PACK APPLIED TO R KNEE
--- NOTE | 2019-12-26 19:45 | NUR ---
RECEIVED PT TO FLOOR FROM ER VIA STRETCHER. RIGHT LEG BELOW KNEE BRUISED AND SWOLLEN. PT RATES PAIN 9/10. SET UP MORPHINE RESIDENTIAL PROPERTY MANAGER AND INSTRUCTED PT ON USE. REVEIWED HOME MEDS. PT UNABLE TO REMEMBER ANY MEDS EXCEPT FOR VITAMINS SHE TAKES. HISTORY REVIEWED. PUT TELEMETRY ON PT. NO OTHER NEEDS. WILL CONTINUE TO MONITOR.
[2019-12-26] MEDS ORDERED: VITAMIN C500 M1 PO (19:49)
[2019-12-26 20:00] VITALS: BP 129/84
[2019-12-26] MEDS ORDERED: CELEXA10 MG PO (21:00)
[2019-12-26] MEDS ORDERED: SYNTHROID50 MCG PO (21:01)
[2019-12-26] MEDS ORDERED: TEMAZEPAM30 MG PO (21:01)
[2019-12-26] MEDS ORDERED: HYDROCODON-ACE1 EAC7 PO (21:01)
[2019-12-27 00:17] VITALS: BMI 20.8
[2019-12-27 04:00] VITALS: BP 113/62
[2019-12-27 06:07] LABS: BASOPHILS 0.1 % (0-2); EOSINOPHILS 0.2 % (0-7); HEMATOCRIT 30.3 % (36.0-48.0); HEMOGLOBIN 9.5 g/dL (12-16); IMMATURE GRANULOCYTES 0.2 % (0-5); LYMPHOCYTES 24.5 % (15-50); MCH 31.4 pg (26.0-34.0); MCHC 31.4 g/dL (31.0-37.0); MEAN PLATELET VOLUME 9.8 fL (7.4-10.4); MONOCYTES 19.3 % (2-11); NEUTROPHILS 55.7 % (40-80); PLATELET COUNT 276 10x3/uL (130-400); RBC 3.03 10x6/uL (4.00-5.40); RDW 12.4 % (11.5-14.5)
[2019-12-27 06:43] LABS: % SATURATION 10 % (15-55); IRON 20 ug/dl (35-150); TOTAL IRON BIND CAPACITY 189 ug/dl (260-445); UNSAT IRON BIND CAPACITY 169 ug/dl (150-375)
[2019-12-27 06:59] LABS: CALCIUM 8.6 mg/dL (8.5-10.1); CARBON DIOXIDE 23.7 mmol/L (21.0-32.0); CREATININE - SERUM 3.9 mg/dL (0.6-1.3); LDL-HDL RATIO 1.8 ratio (1.5-3.5); MAGNESIUM - SERUM 2.5 mg/dL (1.8-2.4); THYROID STIMULATING HORMONE 2.18 uIU/mL (0.36-3.74)
[2019-12-27 07:02] LABS: ANION GAP 11.8 mmol/L (8-16); POTASSIUM - SERUM 6.5 mmol/L (3.5-5.1)
--- NOTE | 2019-12-27 07:40 | NUR ---
PAGED CHATA BAUTISTA MONUMENT STONECUTTER FOR CH POTASSIUM 6.5, ORDERED TO CONSULT [facility] COMPANYROLOG[facility]
--- NOTE | 2019-12-27 07:55 | NUR ---
CONSULTED NEPHROLOGY, DR THOMAS PAGED AWAITING CALL BACK
[2019-12-27 08:00] VITALS: BP 145/67
--- NOTE | 2019-12-27 08:10 | NUR ---
DR TIMMONS RETURNED PAGE, ORDERED 30GM KAEXELATE, AMP CA, AMP D50, 10 UNITS REG INSULIN, DC NS, D5NS @75 AND REPEAT BMP@ NOON
[2019-12-27 12:14] LABS: ANION GAP 11.2 mmol/L (8-16); CALCIUM 9.9 mg/dL (8.5-10.1); CARBON DIOXIDE 23.9 mmol/L (21.0-32.0); CREATININE - SERUM 4.1 mg/dL (0.6-1.3)
[2019-12-27 12:15] LABS: POTASSIUM - SERUM 5.1 mmol/L (3.5-5.1)
[2019-12-27 13:30] VITALS: BP 128/53
[2019-12-27 14:26] LABS: BILIRUBIN NEGATIVE (NEGATIVE); GLUCOSE NEGATIVE (NEGATIVE); KETONE NEGATIVE (NEGATIVE); NITRITE POSITIVE (NEGATIVE); SPECIFIC GRAVITY 1.005 (1.005-1.020); UROBILINOGEN NORMAL (NORMAL)
[2019-12-27 14:28] LABS: BACTERIA MANY /hpf (NEGATIVE); RED CELLS - URINE 0-5 /hpf (0-5); WHITE CELLS - URINE >50 /hpf (NEGATIVE)
[2019-12-27 16:00] VITALS: BP 144/66
--- NOTE | 2019-12-27 18:36 | NUR ---
I have reviewed this patient and I concur with the Shift Assessment completed by the Licensed Practical Nurse today this shift.
[2019-12-27 20:00] VITALS: BP 131/53
[2019-12-28] VITALS: BP 106/47
[2019-12-28 04:00] VITALS: BP 130/52
--- NOTE | 2019-12-28 05:00 | NUR ---
PT INCONTINENT OF URINE. GAVE HIBICLENS BATH AND CHANGED BED AND GOWN. NO OTHER NEEDS. WILL CONTINUE TO MONITOR.
[2019-12-28 05:23] LABS: BASOPHILS 0.3 % (0-2); EOSINOPHILS 2.5 % (0-7); HEMATOCRIT 27.7 % (36.0-48.0); HEMOGLOBIN 8.7 g/dL (12-16); LYMPHOCYTES 16.8 % (15-50); MCH 31.2 pg (26.0-34.0); MCHC 31.4 g/dL (31.0-37.0); MCV 99.3 fL (80.0-100.0); MEAN PLATELET VOLUME 10.1 fL (7.4-10.4); MONOCYTES 19.8 % (2-11); NEUTROPHILS 60.6 % (40-80); PLATELET COUNT 242 10x3/uL (130-400); RBC 2.79 10x6/uL (4.00-5.40); RDW 12.1 % (11.5-14.5); WBC 7.3 10x3/uL (4.8-10.8)
[2019-12-28 05:25] LABS: ANION GAP 11.1 mmol/L (8-16); CALCIUM 8.3 mg/dL (8.5-10.1); CARBON DIOXIDE 23.4 mmol/L (21.0-32.0); PHOSPHOROUS 3.7 mg/dL (2.5-4.9); POTASSIUM - SERUM 4.5 mmol/L (3.5-5.1)
[2019-12-28 08:41] VITALS: BP 130/57
[2019-12-28 11:45] VITALS: BP 125/53
[2019-12-28] MEDS ORDERED: ROCEPHIN 1 GM/D51 G1 IV (12:32)
[2019-12-28] MEDS ORDERED: ALBUTEROL2.5 MG/3 M UPD (12:32)
[2019-12-28 12:52] VITALS: Ht 157.5 cm; Wt 51.5 kg
--- NOTE | 2019-12-28 14:26 | MORECARE ---
CASE MANAGEMENT DISCHARGE SUMMARY PATIENT: DOMENICO MEJIA I UNIT: [id number] ADM DATE: 12/26/19 AGE: 79 : 40 SEX: F ROOM/BED: D.2225 AUTHOR: JAHAIRA ESTRADA PHYSICIAN: REFERRING PHYSICIAN: JUNG MUSA MD DATE OF SERVICE: 12/28/19 Discharge Plan Patient Name: DOMENICO MEJIA [facility] [facility] 1940 Planned Disposition: Anticipated Discharge Date: Discharge Date: Expected LOS: Initial Reviewer: [email or web address] Initial Review Date: 12/26/2019 Generated: 12/28/19 3:25 pm DCPIA - Discharge Planning Initial Assessment Updated by [email or web address]: Shanti Thronton on 12/28/19 2:24 pm * Is the patient Alert and Oriented? Yes * PCP [facility] * Preadmission Environment Home with Family * ADLs Independent Patient Name: DOMENICO MEJIA Page 11111 at 1426 All edits/amendments must be made on the electronic document DICTATION DATE: 12/28/19 1425 ASSISTANT FOOTBALL COACH: AKIKO 12/28/19 1425 RPT#: [id number] DC DATE: STATUS: ADM IN [facility] [address] [place] [address] END OF REPORT
--- NOTE | 2019-12-28 14:34 | MORECARE ---
CASE MANAGEMENT DISCHARGE SUMMARY PATIENT: DOMENICO MEJIA I UNIT: [id number] ADM DATE: 12/26/19 AGE: 79 : 40 SEX: F ROOM/BED: D.2225 AUTHOR: JAHAIRA ESTRADA PHYSICIAN: REFERRING PHYSICIAN: JUNG MUSA MD DATE OF SERVICE: 12/28/19 Discharge Plan Patient Name: DOMENICO MEJIA Facility: [facility]:[place] : 1940 Planned Disposition: Anticipated Discharge Date: Discharge Date: Expected LOS: Initial Reviewer: [email or web address] Initial Review Date: 12/26/2019 Generated: 12/28/19 3:34 pm Comments DCP- Discharge Planning Updated by [email or web address]: Shanti Thornton on 12/28/19 1:[address] Patient Name: DOMENICO MEJIA Admission Status: ER Accout number: [id number] Admission Date: 12-26-2019 : 1940 Admission Diagnosis: Attending: YADIRA MUSA Current LOS: 2 Anticipated DC Date: Planned Disposition: Primary Insurance: [employer] Discharge Planning Comments: CM met with patient at bedside after explaining CM role and obtaining verbal consent. PATIENT WILL NEED TO BE TRANSFERRED TO ANOTHER FACILITY FOR UROLOGIST. [facility] PREFERS TO STAY IN [place]. I HAVE CONTACTED [facility] IN [place] AND DOC TO [facility] SET UP. TRANSFER AGREEMENTS COMPLETED AND FAXED COPY TO [facility] AND OUR EXECUTIVE BUSINESS COACH. Chief Librarian Circulation Department: Shanti Thornton DCPIA - Discharge Planning Initial Assessment Updated by [email or web address]: Shanti Thornton on 12/28/19 2:24 pm * Is the patient Alert and Oriented? Yes * PCP [facility] * Preadmission Environment Home with Family * ADLs Independent Last DP export: 12/28/19 1:26 p Patient Name: DOMENICO MEJIA Page 39446 at 1434 All edits/amendments must be made on the electronic document DICTATION DATE: 12/28/19 1434 MATERIAL ATTENDANT: AKIKO 12/28/19 1434 RPT#: [id number] DC DATE: STATUS: ADM IN [place] [id number] [place] [address] END OF REPORT
--- NOTE | 2019-12-28 17:27 | MORECARE ---
CASE MANAGEMENT DISCHARGE SUMMARY PATIENT: DOMENICO MEJIA I UNIT: [id number] ADM DATE: 12/26/19 AGE: 79 : 40 SEX: F ROOM/BED: D.2225 AUTHOR: JAHAIRA ESTRADA PHYSICIAN: REFERRING PHYSICIAN: JUNG MUSA MD DATE OF SERVICE: 12/28/19 Discharge Plan Patient Name: DOMENICO MEJIA Facility: [facility]:[place] : 1940 Planned Disposition: Anticipated Discharge Date: Discharge Date: 12/28/2019 Expected LOS: Initial Reviewer: [email or web address] Initial Review Date: 12/26/2019 Generated: 12/28/19 6:27 pm DCP- Discharge Planning Updated by [id number]: Shanti Thornton on 12/28/19 1:[address] Patient Name: DOMENICO MEJIA Admission Status: ER Accout number: [id number] Admission Date: 12-26-2019 : 1940 Admission Diagnosis: Attending: YADIRA MUSA Current LOS: 2 Anticipated DC Date: Planned Disposition: Primary Insurance: [employer] Discharge Planning Comments: CM met with patient at bedside after explaining CM role and obtaining verbal consent. PATIENT WILL NEED TO BE TRANSFERRED TO ANOTHER FACILITY FOR UROLOGIST. [facility] PREFERS TO STAY IN [place]. I HAVE CONTACTED [facility] IN [place] AND DOC TO [facility] SET UP. TRANSFER AGREEMENTS COMPLETED AND FAXED COPY TO AND OUR 911 TELECOMMUNICATOR. B2B Sales Professional: Shanti Thornton DCPIA - Discharge Planning Initial Assessment Updated by [id number]: Shanti Thornotn on 12/28/19 2:24 pm * Is the patient Alert and Oriented? Yes * PCP [facility] * Preadmission Environment Home with Family * ADLs Independent Last DP export: 12/28/19 1:34 p Patient Name: DOMENICO MEJIA Page 63638 at 1727 All edits/amendments must be made on the electronic document DICTATION DATE: 12/28/191726 POLYMERIZATION OVEN TENDER: AKIKO 12/28/191726 RPT#: [id number] DC DATE:12/28/19 STATUS: DIS IN [facility] [address] [place] [address] END OF REPORT
== END 2019-12-28 16:06 | DRG 559 ==
LOC: D.ER 16:07 → D.MS 17:49
PROVIDERS: Emergency Medicine; Internal Medicine Nephrology; ADMIT Emergency Medicine; ATTEND Emergency Medicine
DX: M97.11XA Periprosthetic fracture around internal prosthetic right knee joint, initial encounter (principal); G93.41 Metabolic encephalopathy; S82.201A Unspecified fracture of shaft of right tibia, initial encounter for closed fracture; N39.0 Urinary tract infection, site not specified; N17.9 Acute kidney failure, unspecified; E87.1 Hypo-osmolality and hyponatremia; N18.4 Chronic kidney disease, stage 4 (severe); B96.89 Other specified bacterial agents as the cause of diseases classified elsewhere; W19.XXXA Unspecified fall, initial encounter; I12.9 Hypertensive chronic kidney disease with stage 1 through stage 4 chronic kidney disease, or unspecified chronic kidney disease; J44.9 Chronic obstructive pulmonary disease, unspecified; E03.9 Hypothyroidism, unspecified

== ENCOUNTER 2020-03-08 08:54 | Inpatient (IN) | payer OTHER ==
[~2020-03-08] VITALS: Ht 157.5 cm; Wt 51.7 kg
[~2020-03-08 08:54] MED LIST changes: +ALBUTEROL2.5 MG/3 M UPD; +CELEXA10 MG PO; +HYDROCODON-ACE1 EAC7 PO; +ROCEPHIN 1 GM/D51 G1 IV; +TEMAZEPAM30 MG PO; +VITAMIN C500 M1 PO
--- NOTE | 2020-03-08 08:55 | NUR ---
PT HAS INDWELLING F/C INPLACE PRIOR TO ARRIVAL, URINE NOTED TO TUBING CLEAR CARINA COLORED
[2020-03-08 10:37] LABS: BASOPHILS 0.2 % (0-2); EOSINOPHILS 0.9 % (0-7); HEMATOCRIT 36.1 % (36.0-48.0); HEMOGLOBIN 11.5 g/dL (12-16); IMMATURE GRANULOCYTES 0.2 % (0-5); LYMPHOCYTES 18.4 % (15-50); MCH 30.8 pg (26.0-34.0); MCHC 31.9 g/dL (31.0-37.0); MCV 96.8 fL (80.0-100.0); MEAN PLATELET VOLUME 9.8 fL (7.4-10.4); MONOCYTES 7.6 % (2-11); NEUTROPHILS 72.7 % (40-80); PLATELET COUNT 239 10x3/uL (130-400); RBC 3.73 10x6/uL (4.00-5.40); RDW 12.9 % (11.5-14.5); WBC 10.5 10x3/uL (4.8-10.8)
[2020-03-08 10:50] LABS: CALC OSMOLALITY 291 mosm/kg (275-300); CALCIUM 8.9 mg/dL (8.5-10.1); CARBON DIOXIDE 25.5 mmol/L (21.0-32.0); CHLORIDE - SERUM 105 mmol/L (98-107); GLUCOSE 112 mg/dL (74-106); POTASSIUM - SERUM 5.1 mmol/L (3.5-5.1); SODIUM 140 mmol/L (136-145); UREA NITROGEN 46 mg/dL (7-18); eGFR NON AFRICAN AMERICAN 25 mL/min (90-120)
[2020-03-08 10:53] LABS: INR 0.97 (0.85-1.17); PROTIME 12.8 SECONDS (11.6-15.0)
[2020-03-08 10:58] LABS: ALBUMIN 3.1 g/dL (3.4-5.0); ALKALINE PHOSPHATASE 75 U/L (30-120); ALT (SGPT) 20 U/L (10-68); BILIRUBIN - TOTAL 0.46 mg/dL (0.2-1.3); PROTEIN - SERUM 6.6 g/dL (6.4-8.2)
[2020-03-08 11:00] LABS: TROPONIN-I < 0.017 ng/mL (0.000-0.060)
[2020-03-08 11:11] VITALS: BP 141/52
[2020-03-08 12:22] VITALS: BP 149/52
--- NOTE | 2020-03-08 13:03 | NUR ---
PT REPORT CALLED TO AYSE
[2020-03-08 14:21] VITALS: BP 116/66; BMI 20.9
[2020-03-08 15:00] VITALS: BP 128/67
[2020-03-08 20:00] VITALS: BP 139/67
--- NOTE | 2020-03-08 20:00 | NUR ---
SUPINE IN BED, A&O X 4, BUT PT ASKING, "WHAT COLOR IS THAT CAT?" WHILE POINTING TO THE SINK. TRIED TO PROVE THERE WAS NO CAT, BUT PT WAS ADAMANT. CTM.
[2020-03-08 20:03] LABS: BILIRUBIN NEGATIVE (NEGATIVE); KETONE NEGATIVE (NEGATIVE); NITRITE NEGATIVE (NEGATIVE); UROBILINOGEN NORMAL mg/dL (< 2)
[2020-03-08 20:15] LABS: BACTERIA MANY HPF (NONE SEEN); EPITHELIAL CELLS 0-5 /hpf (0-5); WHITE CELLS - URINE >50 HPF (0-4)
--- NOTE | 2020-03-08 23:00 | NUR ---
PT STILL A&O X 4, NO HALLUCINATIONS CURRENTLY. BED BATH GIVEN, WING GATO APPLIED AND FUNCTIONING. SCD AND PLEXI PULSE APPLIED. GARCÍA/ROS CARE PROVIDED AND STAT LOCK APPLIED. DRESSING TO 20G IV IN LEFT AC REMOVED, AND NEW ONE APPLIED. BLOOD RETURN NOTED, FLUSHES WITH EASE, PATENT. PT CONCERNED TO WHERE HER PURSE IS, NOT IN BELONGINGS BAG, BUT INSISTS IT CAME WITH HER TO HOSPITAL. NO FURTHER NEEDS VOICED, CTM.
[2020-03-09] VITALS: BP 151/64
--- NOTE | 2020-03-09 | NUR ---
PT YELLING FROM ROOM, "HELP! OH NO! HE BROKE IN!" WHEN NURSE ENTERED ROOM, PT WAS SCARED, STATING, "THERE'S A BLACK MAN BREAKING IN!" WHILE POINTING TO THE DARK WINDOW. ASSURED PT SHE WAS IN HOSPITAL ON THE SECOND FLOOR AND IT WAS DARK BECAUSE IT'S NIGHTTIME OUTSIDE. BLINDS TURNED SO THAT WHITE SIDE IS FACING PT AND OUTSIDE IS NO LONGER VISIBLE. CPOC.
[2020-03-09 04:00] VITALS: BP 122/53
[2020-03-09 06:39] LABS: BASOPHILS 0.2 % (0-2); EOSINOPHILS 1.9 % (0-7); HEMATOCRIT 34.9 % (36.0-48.0); HEMOGLOBIN 10.9 g/dL (12-16); IMMATURE GRANULOCYTES 0.2 % (0-5); LYMPHOCYTES 28.6 % (15-50); MCH 30.5 pg (26.0-34.0); MCHC 31.2 g/dL (31.0-37.0); MCV 97.8 fL (80.0-100.0); MONOCYTES 10.3 % (2-11); NEUTROPHILS 58.8 % (40-80); PLATELET COUNT 242 10x3/uL (130-400); RBC 3.57 10x6/uL (4.00-5.40); WBC 8.5 10x3/uL (4.8-10.8)
[2020-03-09 07:12] LABS: ALBUMIN 2.7 g/dL (3.4-5.0); ANION GAP 12.2 mmol/L (8-16); BILIRUBIN - TOTAL 0.38 mg/dL (0.2-1.3); CALCIUM 8.5 mg/dL (8.5-10.1); CARBON DIOXIDE 25.4 mmol/L (21.0-32.0); POTASSIUM - SERUM 4.6 mmol/L (3.5-5.1)
[2020-03-09 08:02] VITALS: BP 124/59
--- NOTE | 2020-03-09 08:28 | NUR ---
RESTING IN BED, NO DISTRESS NOTED, IV INFUSING PER LAC, GARCÍA TO GRAVITY, CONT TO MONITOR OUTPUT
[2020-03-09 12:02] VITALS: BP 127/56
[2020-03-09 13:32] VITALS: Ht 157.5 cm; Wt 51.7 kg
[2020-03-09 14:30] VITALS: BP 105/42
[2020-03-09 22:21] VITALS: BP 143/69
--- NOTE | 2020-03-10 02:31 | NUR ---
I have reviewed this patient and I concur with the Shift Assessment completed by the Licensed Practical Nurse today this shift.
[2020-03-10 04:00] VITALS: BP 123/58
[2020-03-10 06:11] LABS: BASOPHILS 0.2 % (0-2); EOSINOPHILS 0.5 % (0-7); HEMATOCRIT 34.3 % (36.0-48.0); HEMOGLOBIN 10.8 g/dL (12-16); IMMATURE GRANULOCYTES 0.3 % (0-5); LYMPHOCYTES 14.7 % (15-50); MCH 30.3 pg (26.0-34.0); MCHC 31.5 g/dL (31.0-37.0); MCV 96.3 fL (80.0-100.0); MONOCYTES 13.4 % (2-11); NEUTROPHILS 70.9 % (40-80); PLATELET COUNT 222 10x3/uL (130-400); RBC 3.56 10x6/uL (4.00-5.40)
[2020-03-10 06:37] LABS: ALBUMIN 2.6 g/dL (3.4-5.0); ANION GAP 12.6 mmol/L (8-16); BILIRUBIN - TOTAL 0.32 mg/dL (0.2-1.3); CALCIUM 8.2 mg/dL (8.5-10.1); CARBON DIOXIDE 23.4 mmol/L (21.0-32.0); CREATININE - SERUM 2.2 mg/dL (0.6-1.3); MAGNESIUM - SERUM 1.8 mg/dL (1.8-2.4); PROTEIN - SERUM 5.6 g/dL (6.4-8.2)
--- NOTE | 2020-03-10 07:18 | NUR ---
PATIENT IS WITHOUT DISTRESS.CALL LIGHT IN REACH
[2020-03-10 08:00] VITALS: BP 107/51
[2020-03-10 11:56] VITALS: BP 116/52
--- NOTE | 2020-03-10 14:25 | NUR ---
OT NOTE: ATTEMPTED BED MOB ACT HOWEVER, PT REPORTED THAT SHE WAS IN TOO MUCH PAIN AND COULD NOT DO IT TODAY... REPORTED 10/10 ON PAIN SCALE. NURSING INFORMED. ESTEBAN DUARTE, OTR/L
[2020-03-10 15:53] VITALS: BP 117/51
[2020-03-10 20:00] VITALS: BP 132/53
[2020-03-11] VITALS: BP 126/57
[2020-03-11 04:00] VITALS: BP 140/66
--- NOTE | 2020-03-11 04:05 | NUR ---
I have reviewed this patient and I concur with the Shift Assessment completed by the Licensed Practical Nurse today this shift.
[2020-03-11 05:49] LABS: BASOPHILS 0.1 % (0-2); EOSINOPHILS 1.4 % (0-7); HEMATOCRIT 34.3 % (36.0-48.0); HEMOGLOBIN 10.7 g/dL (12-16); IMMATURE GRANULOCYTES 0.3 % (0-5); LYMPHOCYTES 16.5 % (15-50); MCH 30.6 pg (26.0-34.0); MCHC 31.2 g/dL (31.0-37.0); MONOCYTES 11.9 % (2-11); NEUTROPHILS 69.8 % (40-80); PLATELET COUNT 203 10x3/uL (130-400); RDW 13.1 % (11.5-14.5)
[2020-03-11 05:55] LABS: ALBUMIN 2.4 g/dL (3.4-5.0); ANION GAP 9.3 mmol/L (8-16); BILIRUBIN - TOTAL 0.36 mg/dL (0.2-1.3); CALCIUM 8.2 mg/dL (8.5-10.1); CARBON DIOXIDE 24.9 mmol/L (21.0-32.0); CREATININE - SERUM 2.1 mg/dL (0.6-1.3); POTASSIUM - SERUM 4.2 mmol/L (3.5-5.1); WBC 9.7 10x3/uL (4.8-10.8)
[2020-03-11 08:00] VITALS: BP 118/51
[2020-03-11 12:00] VITALS: BP 142/60
--- NOTE | 2020-03-11 12:02 | NUR ---
OT NOTE: ASSISTED PT WITH BATH TODAY. PT WAS ABLE TO WASH FACE, HANDS , AND CHEST. DIFFICULTY WASHING R UE DUE TO PAIN WHEN MOVING L ARM (PAIN IN RIBS). MOD ASSIST WITH REMAINDER OF BATHING AND MAX ASSIST FOR FEET AND PERINEAL CARE. BED MOB WITH TOTAL ASSIST FOR SUPINE TO SIT, HOWEVER, ONCE ON EOB, SHE MAINTAINED STATIC SITTING BALANCE WITHOUT SUPPORT; SIT TO STAND WITH MOD ASSIST X 2; TRANSFER TO CHAIR WITH MOD ASSIST X 2.. PT REPORTS PAIN BUT NOT NEARLY SEVERE YESTERDAY. PT UP IN CHAIR WITH CALL LIGHT AND TABLE WITHIN REACH. [id number]
[2020-03-11 16:59] VITALS: BP 139/53
--- NOTE | 2020-03-11 19:00 | NUR ---
BEDSIDE REPORT RECEIVED AND CARE OF PT ASSUMED. PT LYING IN SUPINE POSITION WATCHING TV. IV TO RIGHT FA PATENT WITH NS INFUSING AT 7 ML/HR. GARCÍA CATHETER DRAINING TO GRAVITY WITH YELLOW URINE IN COLLECTION BAG. PT CONFUSED TO SITUATION AT THIS TIME. BED ALARM IN USE.
--- NOTE | 2020-03-11 21:00 | NUR ---
HS MEDICATIONS GIVEN TO INCLUDE NORCO PO PER REQUEST FOR PAIN IN RIBS. WILL MONITOR FOR EFFECTIVENESS.
[2020-03-11 21:40] VITALS: BP 147/55
[2020-03-12 01:33] VITALS: BP 127/56
[2020-03-12 05:36] VITALS: BP 142/68
--- NOTE | 2020-03-12 09:00 | NUR ---
GOT PATIENT OOBTC AT THIS TIME X 1 ASSIST. CHAIR ALARM ON. GARCÍA AND IV INTACT. IMMOBILIZER ON. CALL LIGHT WITHIN REACH.
[2020-03-12 09:21] VITALS: BP 161/75
[2020-03-12 10:15] LABS: BASOPHILS 0.1 % (0-2); EOSINOPHILS 0.4 % (0-7); HEMATOCRIT 35.5 % (36.0-48.0); HEMOGLOBIN 11.4 g/dL (12-16); IMMATURE GRANULOCYTES 0.3 % (0-5); LYMPHOCYTES 11.2 % (15-50); MCH 30.7 pg (26.0-34.0); MCHC 32.1 g/dL (31.0-37.0); MEAN PLATELET VOLUME 10.1 fL (7.4-10.4); MONOCYTES 7.7 % (2-11); NEUTROPHILS 80.3 % (40-80); PLATELET COUNT 233 10x3/uL (130-400); RBC 3.71 10x6/uL (4.00-5.40); RDW 12.7 % (11.5-14.5); WBC 10.5 10x3/uL (4.8-10.8)
[2020-03-12 10:16] LABS: MCV 95.7 fL (80.0-100.0)
[2020-03-12 10:34] LABS: ALBUMIN 2.6 g/dL (3.4-5.0); ANION GAP 9.9 mmol/L (8-16); BILIRUBIN - TOTAL 0.32 mg/dL (0.2-1.3); CALCIUM 8.9 mg/dL (8.5-10.1); CARBON DIOXIDE 25.7 mmol/L (21.0-32.0); MAGNESIUM - SERUM 2.1 mg/dL (1.8-2.4); POTASSIUM - SERUM 3.6 mmol/L (3.5-5.1); PROTEIN - SERUM 6.7 g/dL (6.4-8.2)
--- NOTE | 2020-03-12 12:00 | NUR ---
PATIENT SITTING UP IN CHAIR EATING WITH IV INTACT. STILL CONFUSED AND TALKING TO PEOPLE THAT ARENT IN THE ROOM. GARCÍA INTACT. CHAIR ALARM ON. CALL LIGHT WITHIN REACH.
[2020-03-12 14:25] VITALS: BP 175/80
--- NOTE | 2020-03-12 15:00 | NUR ---
PATIENT SITTING UP IN CHAIR WITH NO COMPLAINTS. CHAIR ALARM ON. [facility]ACH.
--- NOTE | 2020-03-12 16:45 | NUR ---
PATIENT PULLED IV OUT AND TOOK IMMOBILIZER OFF. IMMOBILIZER PLACED BACK ON PATIENT AND ASSISTED PATIENT TO BR AND THEN BACK TO BED. BED ALARM ON. CALL LIGHT WITHIN REACH. REMOVED IMMOBILIZER PER REQUEST DUE TO REDNESS ON KNEE.
[2020-03-12 17:14] VITALS: BP 130/64
--- NOTE | 2020-03-12 18:38 | NUR ---
PATIENT IV RESTARTED X 1 STICK. 22 G. PATIENT TOLERATED WITH SMALL AMOUNT OF PAIN. CALL LIGHT WITHIN REACH.
--- NOTE | 2020-03-12 19:00 | NUR ---
BEDSIDE REPORT RECEIVED AND CARE OF PT ASSUMED. PT LYING IN SUPINE POSITION WATCHING TV. IV TO LEFT FA PATENT WITH NS INFUSING AT 50 ML/HR. GARCÍA CATHETER DRAINING TO GRAVITY WITH YELLOW URINE IN COLLECTION BAG. WILL MONITOR FOR NEEDS.
[2020-03-12 20:33] VITALS: BP 116/59
--- NOTE | 2020-03-12 20:35 | NUR ---
HS MEDICATIONS GIVEN TO INCLUDE RESTORIL 30 MG PO PER REQUEST FOR SLEEP, PER PRN ORDERS.
[2020-03-13 05:55] LABS: BASOPHILS 0.3 % (0-2); EOSINOPHILS 4.5 % (0-7); HEMATOCRIT 30.5 % (36.0-48.0); HEMOGLOBIN 9.6 g/dL (12-16); IMMATURE GRANULOCYTES 0.1 % (0-5); MCH 30.1 pg (26.0-34.0); MCHC 31.5 g/dL (31.0-37.0); MCV 95.6 fL (80.0-100.0); MEAN PLATELET VOLUME 10.2 fL (7.4-10.4); MONOCYTES 11.2 % (2-11); NEUTROPHILS 62.9 % (40-80); PLATELET COUNT 237 10x3/uL (130-400); RBC 3.19 10x6/uL (4.00-5.40); RDW 12.8 % (11.5-14.5)
--- NOTE | 2020-03-13 06:01 | NUR ---
PT C/O PAIN IN RIB AREA AND ARMS. GAVE NORCO PO PER REQUEST FOR PAIN, PER PRN ORDER.
[2020-03-13 06:08] LABS: WBC 7.1 10x3/uL (4.8-10.8)
[2020-03-13 06:22] LABS: ALBUMIN 2.1 g/dL (3.4-5.0); ANION GAP 10.9 mmol/L (8-16); BILIRUBIN - TOTAL 0.26 mg/dL (0.2-1.3); CALCIUM 8.5 mg/dL (8.5-10.1); CARBON DIOXIDE 24.1 mmol/L (21.0-32.0); MAGNESIUM - SERUM 2.1 mg/dL (1.8-2.4); PROTEIN - SERUM 5.7 g/dL (6.4-8.2)
[2020-03-13 08:00] VITALS: BP 136/58
--- NOTE | 2020-03-13 11:27 | NUR ---
rehab prescreen: this patient will make a good canidiate for irf will need to show more participation with therapy to to meet the required amount therapy set by guidelines, but may just need more pain control. She has [employer] insurance and will require a prior auth before able to deturmine if able to be admitted. will follow progress while waiting on insurance aproval. thank you for this eval. patel swift lpn clinicial liasion
[2020-03-13 12:00] VITALS: BP 127/54
--- NOTE | 2020-03-13 12:37 | NUR ---
Rehab Note- Acute Inpatient Rehab prescreen order received. The patient has [employer] insurance and will require a PreAuth. Will begin PreAuth process. Thank you for this referral. Cari Navarro RN Clinical Liaison, [facility] Rehab
[2020-03-13 16:43] VITALS: BP 135/62
--- NOTE | 2020-03-13 18:15 | NUR ---
PATIENT IN BED WITH IV INTACT. NO COMPLAINTS OR SIGNS OF DISTRESS. WAS UP IN THE CHAIR EARLIER FOR 4 HOURS PER PT. IMMOBILIZER WAS NOT PLACED ON PATIENT. PT TECH STATED HE WOULD SPEAK TO BRANDYN PT ABOUT IMMOBILIZER AND THEN CAME BACK AND SAID THAT PATIENT WAS OK WITHOUT IT. PATIENT GARCÍA INTACT. CALL LIGHT WITHIN REACH.
--- NOTE | 2020-03-13 19:00 | NUR ---
BEDSIDE REPORT RECEIVED AND CARE OF PT ASSUMED. PT LYING IN LOW LI'S POSITION WATCHING TV. IV TO LEFT FA PATENT WITH NS INFUSING AT 50 ML/HR. GARCÍA CATHETER DRAINING TO GRAVITY WITH YELLOW URINE IN COLLECTION BAG. WILL MONITOR FOR NEEDS.
--- NOTE | 2020-03-13 20:08 | NUR ---
HS MEDICATIONS GIVEN TO INCLUDE RESTORIL PO PER REQUEST FOR SLEEP. PT DENIES NEED FOR PAIN MEDICATION AT THIS TIME.
[2020-03-13 20:42] VITALS: BP 141/53
[2020-03-14 06:23] VITALS: BP 130/60
[2020-03-14 06:25] LABS: BASOPHILS 0.3 % (0-2); EOSINOPHILS 3.9 % (0-7); HEMOGLOBIN 9.8 g/dL (12-16); IMMATURE GRANULOCYTES 0.3 % (0-5); MCH 29.7 pg (26.0-34.0); MCHC 30.6 g/dL (31.0-37.0); MEAN PLATELET VOLUME 10.5 fL (7.4-10.4); MONOCYTES 12.9 % (2-11); NEUTROPHILS 55.6 % (40-80); WBC 6.9 10x3/uL (4.8-10.8)
[2020-03-14 06:33] LABS: PLATELET COUNT 287 10x3/uL (130-400)
[2020-03-14 07:15] LABS: ALBUMIN 1.9 g/dL (3.4-5.0); ANION GAP 10.8 mmol/L (8-16); BILIRUBIN - TOTAL 0.17 mg/dL (0.2-1.3); CALCIUM 8.1 mg/dL (8.5-10.1); CARBON DIOXIDE 24.7 mmol/L (21.0-32.0); POTASSIUM - SERUM 4.5 mmol/L (3.5-5.1); PROTEIN - SERUM 5.4 g/dL (6.4-8.2)
[2020-03-14 08:00] VITALS: BP 135/54
[2020-03-14 12:20] VITALS: BP 130/57
--- NOTE | 2020-03-14 15:11 | NUR ---
REFUSED TELEMETRY AT THIS TIME. STATES SHE IS GOING HOME. TRIED TO EXPLAIN NO ORDERS. STATED SHE IS GOING TO TALK TO HER SON.
--- NOTE | 2020-03-14 15:59 | NUR ---
Nutrition Follow-up: Awaiting rehab acceptance. Diet: Regular PO intake: ~33% average x last 9 meals Last BM: none recorded since admit x 5 days now at least. Wt: 114# (03/09/20) Meds noted: NS@50, miralax, probiotics Labs noted: BUN 29(H), Cr 2(H), GFR 25(L), Alb 1.9(L) Recommend continue current diet. Encourage PO intake. Will add Ensure TID with meals. Continue bowel regimen to promote BM regularity and hopefully help increase appetite. May need to consider appetite supplements if PO intake does not improve. RD following.
[2020-03-14 16:00] VITALS: BP 141/66
--- NOTE | 2020-03-14 19:00 | NUR ---
BEDSIDE REPORT RECEIVED AND CARE OF PT ASSUMED. PT SITTING UP IN CHAIR AT THIS TIME. NO IV SITED. CHAIR ALARM IN USE.
--- NOTE | 2020-03-14 19:29 | NUR ---
OT NOTE: PT COMPLETED SUPINE TO SIT WITH MAX A. PT COMPLETED SIT TO STAND WITH MOD A. PT COMPLETED EOB SITTING WITH MIN A. PT COMPLETED FACE HYGIENE WITH SETUP. [phone] THANK YOU,DEYA BOURGEOIS
--- NOTE | 2020-03-14 19:40 | NUR ---
PT STUMBLING INTO THE HALLWAY ASKING WHERE HER RIDE IS?? ATTEMPTED TO RE-ORIENT AND POSITIONED IN BED FOR COMFORT. BED ALARM ACTIVATED.
[2020-03-14 20:00] VITALS: BP 142/66
--- NOTE | 2020-03-14 20:20 | NUR ---
HS MEDICATIONS GIVEN TO INCLUDE PRN RESTORIL PER PT REQUEST FOR SLEEP. BED ALARM IN USE. WILL CONTINUE TO MONITOR FOR NEEDS.
[2020-03-15 04:00] VITALS: BP 120/61
[2020-03-15 05:53] LABS: BASOPHILS 0 % (0-2); EOSINOPHILS 3.6 % (0-7); HEMATOCRIT 30.6 % (36.0-48.0); HEMOGLOBIN 9.5 g/dL (12-16); IMMATURE GRANULOCYTES 0.3 % (0-5); LYMPHOCYTES 37.1 % (15-50); MCH 30.1 pg (26.0-34.0); MCV 96.8 fL (80.0-100.0); MEAN PLATELET VOLUME 9.9 fL (7.4-10.4); MONOCYTES 11.2 % (2-11); NEUTROPHILS 47.8 % (40-80); PLATELET COUNT 300 10x3/uL (130-400); RBC 3.16 10x6/uL (4.00-5.40); RDW 12.9 % (11.5-14.5); WBC 5.8 10x3/uL (4.8-10.8)
[2020-03-15 06:30] LABS: ALBUMIN 2.1 g/dL (3.4-5.0); ANION GAP 10.7 mmol/L (8-16); BILIRUBIN - TOTAL 0.28 mg/dL (0.2-1.3); CALCIUM 8.2 mg/dL (8.5-10.1); CARBON DIOXIDE 23.7 mmol/L (21.0-32.0); POTASSIUM - SERUM 4.4 mmol/L (3.5-5.1); PROTEIN - SERUM 5.6 g/dL (6.4-8.2)
[2020-03-15 08:00] VITALS: BP 135/66
--- NOTE | 2020-03-15 09:00 | NUR ---
ASSESSMENT PER FLOW SHEET. PATIENT IS WITHOUT DISTRESS.CALL LIGHT IN REACH
--- NOTE | 2020-03-15 14:29 | NUR ---
Rehab Note- Called [facility], spoke with Nhi with Medical Management to check on status of pending PreAuth and stated that it is still pending at this time. Will continue to await determination at this time. Thank you for this referral! Cari Navarro RN Clinical Liaison, [facility] Rehab
[2020-03-15] MEDS ORDERED: FLORAJEN3 CAPS460 MG PO (15:42)
[2020-03-15] MEDS ORDERED: ZYVOX600 MG PO (15:42)
[2020-03-15] MEDS ORDERED: DIFLUCAN100 MG PO (15:42)
--- NOTE | 2020-03-15 15:50 | MORECARE ---
CASE MANAGEMENT DISCHARGE SUMMARY PATIENT: DOMENICO MEJIA I UNIT: [id number] ADM DATE: 03/09/20 AGE: 80 : 40 SEX: F ROOM/BED: D.2229 AUTHOR: JAHAIRA ESTRADA PHYSICIAN: REFERRING PHYSICIAN: CARMEL WARE MD DATE OF SERVICE: 03/15/20 Discharge Plan Patient Name: DOMENICO MEJIA Facility: [facility]:[place] : 1940 Planned Disposition: Anticipated Discharge Date: Discharge Date: Expected LOS: Initial Reviewer: [email or web address] Initial Review Date: 03/08/2020 Generated: 03/15/20 4:49 pm Comments DCP- Discharge Planning Updated by [email or web address]: Shanti Thornton on 03/15/20 2:[address] Patient Name: DOMENICO MEJIA Admission Status: ER Accout number: [id number] Admission Date: 03-09-2020 : 1940 Admission Diagnosis:MULTIPLE FRACTURES OF RIBS, LEFT SIDE, INIT FOR CLOS FX Attending: DAVE Current LOS: 6 Anticipated DC Date: Planned Disposition: Primary Insurance: [employer] Discharge Planning Comments: MET WITH PATIENT TODAY AND SHE WANTS TO DC TO HOME AND RESUME [facility]. MADELINE AND IMM SIGNED. PLANS TO DC TO HOME TODAY AND I HAVE FAXED [facility] HER DC ORDER. CM TO FOLLOW AND ASSIST NEEDED. Environmental Protection Inspector: Shanti Thornton External Providers External Provider: [facility] Next Contact Date: Service Request Date: Service Type: Resolution: Reviewer: Comments: Coverage Notice Reviewer: [id number] Simon Thornton Notice Issued Date-Time: 03/09/2020 10:15 Notice Type: Medicare Outpatient Observation Notice Notice Delivered To: Patient Relationship to Patient: Technical Clerk Name: Delivery Method: HAND - Hand Delivered Lisa Days: Prior Verbal Notification: Recipient Understood Notice: Yes Recipient Signature: Yes Med Rec Note Co-signed by Attending: Coverage Notice Comment: Reviewer: [id number] Simon Thornton Notice Issued Date-Time: 03/15/2020 15:30 Notice Type: IM Discharge Notice Notice Delivered To: Patient Relationship to Patient: Technical Clerk Name: Delivery Method: HAND - Hand Delivered Lisa Days: Prior Verbal Notification: Recipient Understood Notice: Yes Recipient Signature: Yes Med Rec Note Co-signed by Attending: Coverage Notice Comment: Reviewer: [id number] Simon Thornton Notice Issued Date-Time: 03/15/2020 15:30 Notice Type: Patient Choice Letter Notice Delivered To: Patient Relationship to Patient: Technical Clerk Name: Delivery Method: - Lisa Days: Prior Verbal Notification: Recipient Understood Notice: Recipient Signature: Med Rec Note Co-signed by Attending: Coverage Notice Comment: WANTS TO RESUME [facility]. Patient Name: DOMENICO MEJIA Page [phone] at 1550 All edits/amendments must be made on the electronic document DICTATION DATE: 03/15/201548 FUEL BUYER: AKIKO 03/15/201548 RPT#: [id number] DC DATE: STATUS: ADM IN [facility] [address] [place] [address] END OF REPORT
--- NOTE | 2020-03-15 16:16 | NUR ---
REMAINS UP IN CHAIR. PATIENT IS WITHOUT DISTRESS.CALL LIGHT IN REACH
--- NOTE | 2020-03-15 16:35 | NUR ---
DISCHARGE INSTRUCTIONS,STATES UNDERSTANDING. PATIENT STATES SHE HAS NO RIDE HOME. SPOKE WITH ESTEBAN MILLER
--- NOTE | 2020-03-15 17:15 | NUR ---
16 ROMANSH GARCÍA EXCHANGED ORDERED. PATIENT TOLERATED WELL. YELLOW URINE RETURNED IN BAG. PATIENT WISHES TO HAVE DINNER TRAY
[2020-03-15 17:48] VITALS: BP 146/78
--- NOTE | 2020-03-15 17:48 | NUR ---
OT NOTE: PT COMPLETED SUPINE TO SIT WITH MIN A. PT COMPLETED SIT TO STAND WITH MIN A. PT COMPLETED UE AROM AX TOLERATED. PT COMPLETED HAIR GROOMING WITH SETUP. [phone] THANK YOU,DEYA BOURGEOIS
--- NOTE | 2020-03-15 18:21 | NUR ---
PATIENT STILL CANT GET IN CONTACT WITH FAMILY. I HAVE SPOKE WITH ESTEBAN WITH [facility]. SHE SAYS PATIENT CANNOT GO HOME ALONE AND MAY BE APPROVED FOR REHAB IN AM. I ALSO CALLED [facility] AND SPOKE WITH HIM AND GOT ORDER TO HOLD DISCHARGE TILL SAFE FOR PATIENT TO GO HOME.
[2020-03-15 20:00] VITALS: BP 137/64
--- NOTE | 2020-03-16 02:44 | NUR ---
RESTNG IN BED WITH NO NEEDS STATED OR NOTED AT THIS TIME. NO IV IN PLACE. MD AWARE PER REPORT. FALL PRECAUTIONS IN PLACE. O2 AT 2 LETERS VIA N/C WATER AND CALL LIGHT IN REACH. GARCÍA CATH IN PLACE WITH YELLOW URIN TO BAG.
[2020-03-16 04:00] VITALS: BP 141/66
[2020-03-16 05:31] LABS: BASOPHILS 0.2 % (0-2); EOSINOPHILS 3.4 % (0-7); HEMATOCRIT 31.5 % (36.0-48.0); HEMOGLOBIN 9.8 g/dL (12-16); IMMATURE GRANULOCYTES 0.2 % (0-5); LYMPHOCYTES 37.6 % (15-50); MCH 30.1 pg (26.0-34.0); MCHC 31.1 g/dL (31.0-37.0); MCV 96.6 fL (80.0-100.0); MEAN PLATELET VOLUME 9.8 fL (7.4-10.4); MONOCYTES 9.8 % (2-11); NEUTROPHILS 48.8 % (40-80); PLATELET COUNT 345 10x3/uL (130-400); RBC 3.26 10x6/uL (4.00-5.40); RDW 13.1 % (11.5-14.5); WBC 5.9 10x3/uL (4.8-10.8)
[2020-03-16 06:05] LABS: ALBUMIN 2.3 g/dL (3.4-5.0); ANION GAP 11.2 mmol/L (8-16); BILIRUBIN - TOTAL 0.28 mg/dL (0.2-1.3); CALCIUM 8.3 mg/dL (8.5-10.1); CARBON DIOXIDE 23.9 mmol/L (21.0-32.0); CREATININE - SERUM 2.3 mg/dL (0.6-1.3); POTASSIUM - SERUM 4.1 mmol/L (3.5-5.1); PROTEIN - SERUM 5.8 g/dL (6.4-8.2)
[2020-03-16 09:47] VITALS: BP 152/66
[2020-03-16 11:57] VITALS: BP 120/60
[2020-03-16 12:25] VITALS: BP 127/73
--- NOTE | 2020-03-16 15:49 | NUR ---
REPORT TO LYN ON REHAB. NO BED IN ROOM. SHE WANTS TO CALL WHEN BED IS IN ROOM
--- NOTE | 2020-03-16 16:53 | NUR ---
OT NOTE: PT COMPLETED ADL MOB WITH RW REQUIRED CGA. PT COMPLETED UB HYGIENE TASK WITH SETUP WHILE SEATED IN CHAIR. [phone] THANK YOU,DEYA BOURGEOIS
--- NOTE | 2020-03-16 17:01 | NUR ---
DISCHARGE INSTRUCTIONS,STATES UNDERSTANDING. PATIENT TO REHAB VIA WHEELCHAIR.
--- NOTE | 2020-03-17 09:02 | MORECARE ---
CASE MANAGEMENT DISCHARGE SUMMARY PATIENT: DOMENICO MEJIA I UNIT: [id number] ADM DATE: 03/09/20 AGE: 80 : 40 SEX: F ROOM/BED: D.2229 AUTHOR: JAHAIRA ESTRADA PHYSICIAN: REFERRING PHYSICIAN: CARMEL WARE MD DATE OF SERVICE: 03/17/20 Discharge Plan Patient Name: DOMENICO MEJIA Facility: [facility]:[place] : 1940 Planned Disposition: Anticipated Discharge Date: Discharge Date: 03/16/2020 Expected LOS: Initial Reviewer: [id number] Initial Review Date: 03/08/2020 Generated: 03/17/20 10:01 am Comments DCP- Discharge Planning Updated by [email or web address]: Shanti Thornton on 03/15/20 2:[address] Patient Name: DOMENICO MEJIA Admission Status: ER Accout number: [id number] Admission Date: 03-09-2020 : 1940 Admission Diagnosis:MULTIPLE FRACTURES OF RIBS, LEFT SIDE, INIT FOR CLOS FX Attending: DAVE Current LOS: 6 Anticipated DC Date: Planned Disposition: Primary Insurance: [employer] Discharge Planning Comments: MET WITH PATIENT TODAY AND SHE WANTS TO DC TO HOME AND RESUME [facility]. MADELINE AND IMM SIGNED. PLANS TO DC TO HOME TODAY AND I HAVE FAXED [facility] HER DC ORDER. CM TO FOLLOW AND ASSIST NEEDED. Paint Spray Tender: Shanti Thornton Coverage Notice Reviewer: [id number] Simon Thornton Notice Issued Date-Time: 03/09/2020 10:15 Notice Type: Medicare Outpatient Observation Notice Notice Delivered To: Patient Relationship to Patient: Repair Cameraman Name: Delivery Method: HAND - Hand Delivered Lisa Days: Prior Verbal Notification: Recipient Understood Notice: Yes Recipient Signature: Yes Med Rec Note Co-signed by Attending: Coverage Notice Comment: Reviewer: [id number] Simon Thornton Notice Issued Date-Time: 03/15/2020 15:30 Notice Type: IM Discharge Notice Notice Delivered To: Patient Relationship to Patient: Repair Cameraman Name: Delivery Method: HAND - Hand Delivered Lisa Days: Prior Verbal Notification: Recipient Understood Notice: Yes Recipient Signature: Yes Med Rec Note Co-signed by Attending: Coverage Notice Comment: Reviewer: [id number] Simon Thornton Notice Issued Date-Time: 03/15/2020 15:30 Notice Type: Patient Choice Letter Notice Delivered To: Patient Relationship to Patient: Repair Cameraman Name: Delivery Method: - Lisa Days: Prior Verbal Notification: Recipient Understood Notice: Recipient Signature: Med Rec Note Co-signed by Attending: Coverage Notice Comment: WANTS TO RESUME [facility]. Last DP export: 03/15/20 2:49 Patient Name: DOMENICO MEJIA Page [id number] at 0902 All edits/amendments must be made on the electronic document DICTATION DATE: 03/17/20900 COPY CENTER ASSOCIATE: AKIKO 03/17/20900 RPT#: [id number] DC DATE:03/16/20 STATUS: DIS IN [facility] [address] [place] [address] END OF REPORT
== END 2020-03-16 17:06 | DRG 184 ==
LOC: D.ER 08:54 → D.MS 13:03 → OBSVTIME 14:11 → D.MS 03-09 15:35
PROVIDERS: Emergency Medicine; ADMIT Family Medicine; ATTEND Family Medicine
DX: S22.42XA Multiple fractures of ribs, left side, initial encounter for closed fracture (principal); N18.4 Chronic kidney disease, stage 4 (severe); J90 Pleural effusion, not elsewhere classified; J98.11 Atelectasis; B37.49 Other urogenital candidiasis; J96.11 Chronic respiratory failure with hypoxia; W19.XXXA Unspecified fall, initial encounter; J44.9 Chronic obstructive pulmonary disease, unspecified; I12.9 Hypertensive chronic kidney disease with stage 1 through stage 4 chronic kidney disease, or unspecified chronic kidney disease; E78.5 Hyperlipidemia, unspecified; E03.9 Hypothyroidism, unspecified; M19.90 Unspecified osteoarthritis, unspecified site; M81.0 Age-related osteoporosis without current pathological fracture; D64.9 Anemia, unspecified